=== PATIENT | female | born 1950 | race Caucasian/White ===

== ENCOUNTER 2022-10-17 19:28 | Inpatient (IN) | payer OTHER ==
[~2022-10-17] VITALS: Ht 165.1 cm; Wt 131.5 kg
[2022-10-17 19:33] VITALS: BP_SYST 211; PULSE 91; RESP 25; TEMP 96.9; O2SAT 100
[2022-10-17] MEDS ORDERED: ONDANSETRON HCL 4 MG/2 ML VIAL IVP ONE ×2 (19:45→21:15)
[2022-10-17] MEDS ORDERED: MORPHINE 4 MG INJ. 4 MG/ML VIAL IVP ONE ×2 (19:45→21:15)
[2022-10-17 20:29] LABS: BASOPHILS % (AUTO) 0.3 % (0.0-2.0); EOSINOPHILS % (AUTO) 0.1 % (0.0-4.0); HEMATOCRIT 39.9 % (36-48); HEMOGLOBIN 13.2 g/dL (12.0-16.0); LYMPHOCYTES # (AUTO) 0.9 K/uL (1.0-5.5); LYMPHOCYTES % (AUTO) 5.3 % (20.5-51.5); MEAN CORPUSCULAR HEMOGLOBIN 28 pg (27-31); MEAN CORPUSCULAR HGB CONC 33 % (32-36); MEAN CORPUSCULAR VOLUME 85 fL (79.0-98.0); MONOCYTES # (AUTO) 0.6 K/uL (0.0-1.0); MONOCYTES % (AUTO) 3.9 % (1.7-9.3); NEUTROPHILS # (AUTO) 14.6 K/uL (1.8-7.7); NEUTROPHILS % (AUTO) 90.4 % (40.0-70.0); PLATELET COUNT (AUTO) 386 K/uL (130-430); RED BLOOD CELL COUNT(AUTO) 4.72 MIL/uL (4.2-6.2); RED CELL DISTRIBUTION WIDTH 14.6 % (9.0-15.0); WHITE BLOOD COUNT (AUTO) 16.1 K/uL (4.8-10.8)
[2022-10-17 20:57] LABS: ANION GAP 13 (5-15); CALCIUM 10.7 mg/dL (8.4-11.0); CHLORIDE 96 mmol/L (98-107); CREATININE 0.76 mg/dL (0.55-1.30); GLUCOSE 161 mg/dL (70-99); UREA NITROGEN, BLOOD 18 mg/dL (8-21)
[2022-10-17 21:01] LABS: ALANINE AMINOTRANSFERASE 554 U/L (12-78); ALBUMIN 4.4 g/dL (3.4-4.8); ASPARTATE AMINOTRANSFERASE 594 U/L (10-37)
[2022-10-17 21:04] LABS: LIPASE 4829 U/L (73-393)
[2022-10-17] MEDS ORDERED: PIPERACILLIN/TAZOBACTAM 3.375 GM/VIAL (ZOSYN) IV ONE (21:15)
[2022-10-17] MEDS ORDERED: PIPERACILLIN/TAZO 3.375 GM in NS 50 ML IV ONE (21:15)
[2022-10-17] MEDS ORDERED: NACL 0.9% 1,000 ML IV ONE (21:15)
[2022-10-17] MEDS ORDERED: D5/0.45 NS 1,000 ML IV ONE (22:45)
[2022-10-18] VITALS (12 sets, daily range): BP systolic 125–166; PULSE 83–102; RESP 20–21; TEMP 97.5–98.9; O2SAT 93–99
[2022-10-18] MEDS ORDERED: KETOROLAC TROMETHAMINE 30 MG VIAL IVP PRN (03:30)
[2022-10-18] MEDS ORDERED: NALOXONE HCL 0.4 MG/ML AMP (NARCAN) IVP PRN (06:00)
[2022-10-18] MEDS: D5/0.45 NS 1,000 ML IV SCH ×3 (06:24→21:36)
[2022-10-18 13:15] LABS: BASOPHILS % (AUTO) 0.3 % (0.0-2.0); EOSINOPHILS % (AUTO) 0.2 % (0.0-4.0); HEMOGLOBIN 14.8 g/dL (12.0-16.0); LYMPHOCYTES # (AUTO) 1.1 K/uL (1.0-5.5); LYMPHOCYTES % (AUTO) 8.5 % (20.5-51.5); MEAN CORPUSCULAR HEMOGLOBIN 28 pg (27-31); MEAN CORPUSCULAR HGB CONC 33 % (32-36); MEAN CORPUSCULAR VOLUME 85 fL (79.0-98.0); MONOCYTES # (AUTO) 0.6 K/uL (0.0-1.0); MONOCYTES % (AUTO) 4.4 % (1.7-9.3); NEUTROPHILS # (AUTO) 11.6 K/uL (1.8-7.7); NEUTROPHILS % (AUTO) 86.6 % (40.0-70.0); PLATELET COUNT (AUTO) 389 K/uL (130-430); RED BLOOD CELL COUNT(AUTO) 5.27 MIL/uL (4.2-6.2); RED CELL DISTRIBUTION WIDTH 14.6 % (9.0-15.0); WHITE BLOOD COUNT (AUTO) 13.4 K/uL (4.8-10.8)
[2022-10-18 13:41] LABS: ALANINE AMINOTRANSFERASE 757 U/L (12-78); ALBUMIN 3.7 g/dL (3.4-4.8); ANION GAP 7 (5-15); ASPARTATE AMINOTRANSFERASE 436 U/L (10-37); CALCIUM 9.3 mg/dL (8.4-11.0); CHLORIDE 99 mmol/L (98-107); CREATININE 2.27 mg/dL (0.55-1.30); GLUCOSE 134 mg/dL (70-99); PHOSPHORUS 5.1 mg/dL (2.7-4.5); TOTAL BILIRUBIN 4.1 mg/dL (0.0-1.0); UREA NITROGEN, BLOOD 29 mg/dL (8-21)
[2022-10-18 13:43] LABS: AMYLASE 876 U/L (0-100)
[2022-10-18 13:44] LABS: LIPASE 3909 U/L (73-393)
[2022-10-18] MEDS: MORPHINE 2 MG/ML INJ. SYRINGE IVP PRN ×2 (13:44→22:03)
[2022-10-18] MEDS: PIPERACILLIN/TAZO 4.5GM/DEX-IS 100 ML IV SCH ×2 (13:44→21:36)
[2022-10-18] MEDS ORDERED: FLUTICASONE 250 mCg/SALMETEROL 50 mCg DISKUS W.DEV INH SCH (21:00)
[2022-10-18] MEDS: IPRATROPIUM/ALBUTEROL SULFATE 3 ML AMPUL.NEB (DUONEB) INH PRN (22:30)
[2022-10-19] VITALS (11 sets, daily range): BP systolic 113–130; PULSE 86–120; RESP 16–22; TEMP 96.5–98.8; O2SAT 97–99
[2022-10-19] MEDS: ALBUTEROL SULFATE 0.083% 2.5 MG/3 ML VIAL.NEB INH SCH ×4 (01:00→20:27)
[2022-10-19] MEDS: MORPHINE 2 MG/ML INJ. SYRINGE IVP PRN ×3 (03:20→20:28)
[2022-10-19 05:29] LABS: BASOPHILS % (AUTO) 0.2 % (0.0-2.0); EOSINOPHILS % (AUTO) 0.2 % (0.0-4.0); HEMATOCRIT 46.1 % (36-48); HEMOGLOBIN 15.1 g/dL (12.0-16.0); LYMPHOCYTES # (AUTO) 1.5 K/uL (1.0-5.5); LYMPHOCYTES % (AUTO) 7.7 % (20.5-51.5); MEAN CORPUSCULAR HEMOGLOBIN 28 pg (27-31); MEAN CORPUSCULAR HGB CONC 33 % (32-36); MEAN CORPUSCULAR VOLUME 86 fL (79.0-98.0); MONOCYTES # (AUTO) 0.7 K/uL (0.0-1.0); MONOCYTES % (AUTO) 3.6 % (1.7-9.3); NEUTROPHILS # (AUTO) 17.1 K/uL (1.8-7.7); NEUTROPHILS % (AUTO) 88.3 % (40.0-70.0); PLATELET COUNT (AUTO) 403 K/uL (130-430); RED BLOOD CELL COUNT(AUTO) 5.37 MIL/uL (4.2-6.2); RED CELL DISTRIBUTION WIDTH 14.9 % (9.0-15.0); WHITE BLOOD COUNT (AUTO) 19.4 K/uL (4.8-10.8)
[2022-10-19] MEDS: PIPERACILLIN/TAZO 4.5GM/DEX-IS 100 ML IV SCH ×3 (05:31→21:07)
[2022-10-19 05:34] LABS: ANION GAP 13 (5-15); CALCIUM 8.2 mg/dL (8.4-11.0); CHLORIDE 95 mmol/L (98-107); GLUCOSE 130 mg/dL (70-99); UREA NITROGEN, BLOOD 40 mg/dL (8-21)
[2022-10-19] MEDS: BUDESONIDE 0.5 MG/2 ML AMPUL.NEB INH SCH ×2 (07:35→20:27)
[2022-10-19] MEDS: IPRATROPIUM BROM 0.5 MG/2.5 ML VIAL.NEB (ATROVENT) INH SCH ×3 (07:35→20:26)
[2022-10-19 07:51] LABS: ALBUMIN 3.3 g/dL (3.4-4.8); BILIRUBIN,DIRECT 5.7 mg/dL (0.0-0.3)
[2022-10-19] MEDS ORDERED: TIOTROPIUM BROMIDE 18 mcg/INHALATION (CAPSULE) INH SCH (09:00)
[2022-10-19] MEDS: D5/0.45 NS 1,000 ML IV SCH ×3 (09:13→20:31)
[2022-10-19] MEDS: ONDANSETRON HCL 4 MG/2 ML VIAL IVP PRN (09:24)
[2022-10-19 20:47] LABS: BILIRUBIN,URINE 3+ (NEGATIVE); BLOOD, URINE 2+ (NEGATIVE); CLARITY/URINE SL CLOUDY (CLEAR); COLOR,URINE ORANGE (YELLOW); GLUCOSE,URINE NEGATIVE (NEGATIVE); KETONES,URINE TRACE (NEGATIVE); LEUKOCYTE ESTERASE ,URINE TRACE (NEGATIVE); NITRITE, URINE NEGATIVE (NEGATIVE); PH,URINE 5.5 (5.0-8.0); PROTEIN URINE 2+ (NEGATIVE)
[2022-10-19 20:56] LABS: BACTERIA,URINE FEW /HPF (None Seen)
[2022-10-19 20:58] LABS: COARSE GRANULAR CASTS,URINE 0-10 /LPF (None Seen)
[2022-10-20] VITALS (10 sets, daily range): BP systolic 140–151; PULSE 86–113; RESP 18–20; TEMP 97.2–97.8; O2SAT 3–99
[2022-10-20] MEDS: ALBUTEROL SULFATE 0.083% 2.5 MG/3 ML VIAL.NEB INH SCH ×4 (01:00→19:57)
[2022-10-20] MEDS: IPRATROPIUM/ALBUTEROL SULFATE 3 ML AMPUL.NEB (DUONEB) INH PRN (04:37)
[2022-10-20] MEDS: D5/0.45 NS 1,000 ML IV SCH ×2 (04:47→11:16)
[2022-10-20] MEDS: MORPHINE 2 MG/ML INJ. SYRINGE IVP PRN ×3 (04:48→20:40)
[2022-10-20 05:29] LABS: BASOPHILS % (AUTO) 0.2 % (0.0-2.0); EOSINOPHILS # (AUTO) 0.1 K/uL (0.0-0.4); EOSINOPHILS % (AUTO) 0.7 % (0.0-4.0); HEMATOCRIT 36.2 % (36-48); HEMOGLOBIN 11.9 g/dL (12.0-16.0); LYMPHOCYTES # (AUTO) 0.8 K/uL (1.0-5.5); LYMPHOCYTES % (AUTO) 4.9 % (20.5-51.5); MEAN CORPUSCULAR HEMOGLOBIN 28 pg (27-31); MEAN CORPUSCULAR HGB CONC 33 % (32-36); MEAN CORPUSCULAR VOLUME 85 fL (79.0-98.0); MONOCYTES # (AUTO) 0.7 K/uL (0.0-1.0); NEUTROPHILS # (AUTO) 15.4 K/uL (1.8-7.7); NEUTROPHILS % (AUTO) 90.2 % (40.0-70.0); PLATELET COUNT (AUTO) 276 K/uL (130-430); RED BLOOD CELL COUNT(AUTO) 4.29 MIL/uL (4.2-6.2); WHITE BLOOD COUNT (AUTO) 17.1 K/uL (4.8-10.8)
[2022-10-20 05:56] LABS: ALANINE AMINOTRANSFERASE 346 U/L (12-78); ALBUMIN 2.3 g/dL (3.4-4.8); ANION GAP 15 (5-15); ASPARTATE AMINOTRANSFERASE 208 U/L (10-37); CHLORIDE 91 mmol/L (98-107); CREATININE 5.18 mg/dL (0.55-1.30); GLUCOSE 128 mg/dL (70-99); LIPASE 2421 U/L (73-393); UREA NITROGEN, BLOOD 56 mg/dL (8-21)
[2022-10-20 05:59] LABS: CALCIUM 6.1 mg/dL (8.4-11.0)
[2022-10-20] MEDS: PIPERACILLIN/TAZO 4.5GM/DEX-IS 100 ML IV SCH ×3 (06:00→22:07)
[2022-10-20] MEDS ORDERED: CALCIUM GLUCONATE 2 GM in NS 100 ML IV ONE (06:45)
[2022-10-20] MEDS ORDERED: NS 500 ML IV ONE (07:15)
[2022-10-20] MEDS: BUDESONIDE 0.5 MG/2 ML AMPUL.NEB INH SCH ×2 (07:32→19:58)
[2022-10-20] MEDS: IPRATROPIUM BROM 0.5 MG/2.5 ML VIAL.NEB (ATROVENT) INH SCH ×4 (07:32→19:58)
[2022-10-20] MEDS ORDERED: FUROSEMIDE 40 MG/4 ML VIAL IVP ONE (11:45)
[2022-10-20] MEDS: ACETAMINOPHEN 500 MG TABLET PO PRN ×2 (12:07→20:40)
[2022-10-20 15:27] LABS: BASOPHILS % (AUTO) 0.2 % (0.0-2.0); EOSINOPHILS % (AUTO) 0.2 % (0.0-4.0); HEMATOCRIT 32.8 % (36-48); HEMOGLOBIN 10.8 g/dL (12.0-16.0); LYMPHOCYTES # (AUTO) 0.6 K/uL (1.0-5.5); LYMPHOCYTES % (AUTO) 3.2 % (20.5-51.5); MEAN CORPUSCULAR HEMOGLOBIN 28 pg (27-31); MEAN CORPUSCULAR HGB CONC 33 % (32-36); MEAN CORPUSCULAR VOLUME 85 fL (79.0-98.0); MONOCYTES # (AUTO) 0.8 K/uL (0.0-1.0); MONOCYTES % (AUTO) 4.8 % (1.7-9.3); NEUTROPHILS # (AUTO) 16.2 K/uL (1.8-7.7); PLATELET COUNT (AUTO) 246 K/uL (130-430); RED BLOOD CELL COUNT(AUTO) 3.88 MIL/uL (4.2-6.2); RED CELL DISTRIBUTION WIDTH 14.8 % (9.0-15.0); WHITE BLOOD COUNT (AUTO) 17.7 K/uL (4.8-10.8)
[2022-10-20 16:16] LABS: NEUTROPHILS % (AUTO) 91.6 % (40.0-70.0)
[2022-10-20] MEDS ORDERED: BUMEX 1 MG/4 ML VIAL IVP ONE (19:30)
[2022-10-20] MEDS ORDERED: PANTOPRAZOLE SODIUM 40 MG/VIAL (PROTONIX) IVP ONE (19:30)
[2022-10-20] MEDS: ALBUMIN HUMAN 25% 100 ML IV SCH (20:32)
[2022-10-20] MEDS: D5 IV SCH (20:58)
[2022-10-20] MEDS: [UNRECOGNIZED DRUG - OTHER] IV SCH (20:58)
[2022-10-20] MEDS: SODIUM BICARBONATE IV SCH (20:58)
[2022-10-21] VITALS (15 sets, daily range): BP systolic 134–151; PULSE 94–111; RESP 17–30; TEMP 96.8–98.4; O2SAT 3–100
[2022-10-21] MEDS: ALBUTEROL SULFATE 0.083% 2.5 MG/3 ML VIAL.NEB INH SCH ×4 (01:00→19:56)
[2022-10-21] MEDS: ALBUMIN HUMAN 25% 100 ML IV SCH ×2 (02:56→09:01)
[2022-10-21] MEDS: MORPHINE 2 MG/ML INJ. SYRINGE IVP PRN ×4 (03:06→23:16)
[2022-10-21] MEDS: ACETAMINOPHEN 500 MG TABLET PO PRN ×2 (03:07→17:37)
[2022-10-21] MEDS: PIPERACILLIN/TAZO 4.5GM/DEX-IS 100 ML IV SCH ×3 (05:56→21:18)
[2022-10-21 06:06] LABS: EOSINOPHILS # (AUTO) 0.1 K/uL (0.0-0.4); EOSINOPHILS % (AUTO) 0.3 % (0.0-4.0); HEMATOCRIT 27.9 % (36-48); HEMOGLOBIN 9.4 g/dL (12.0-16.0); LYMPHOCYTES # (AUTO) 0.5 K/uL (1.0-5.5); LYMPHOCYTES % (AUTO) 3.2 % (20.5-51.5); MEAN CORPUSCULAR HEMOGLOBIN 28 pg (27-31); MEAN CORPUSCULAR HGB CONC 34 % (32-36); MEAN CORPUSCULAR VOLUME 84 fL (79.0-98.0); MONOCYTES # (AUTO) 0.9 K/uL (0.0-1.0); MONOCYTES % (AUTO) 5.8 % (1.7-9.3); NEUTROPHILS # (AUTO) 14.4 K/uL (1.8-7.7); NEUTROPHILS % (AUTO) 90.7 % (40.0-70.0); PLATELET COUNT (AUTO) 232 K/uL (130-430); RED BLOOD CELL COUNT(AUTO) 3.32 MIL/uL (4.2-6.2); RED CELL DISTRIBUTION WIDTH 15.3 % (9.0-15.0); WHITE BLOOD COUNT (AUTO) 15.9 K/uL (4.8-10.8)
[2022-10-21 06:28] LABS: ANION GAP 22 (5-15); CREATININE 6.86 mg/dL (0.55-1.30); GLUCOSE 102 mg/dL (70-99); UREA NITROGEN, BLOOD 69 mg/dL (8-21)
[2022-10-21 06:30] LABS: CHLORIDE 84 mmol/L (98-107)
[2022-10-21 06:35] LABS: CALCIUM 6.4 mg/dL (8.4-11.0)
[2022-10-21] MEDS: BUDESONIDE 0.5 MG/2 ML AMPUL.NEB INH SCH ×2 (07:19→20:00)
[2022-10-21] MEDS: IPRATROPIUM BROM 0.5 MG/2.5 ML VIAL.NEB (ATROVENT) INH SCH ×4 (07:19→19:56)
[2022-10-21] MEDS: PANTOPRAZOLE SODIUM 40 MG/VIAL (PROTONIX) IVP SCH (09:00)
[2022-10-21 09:41] LABS: ALBUMIN 2.8 g/dL (3.4-4.8); BILIRUBIN,DIRECT 2.5 mg/dL (0.0-0.3); TOTAL BILIRUBIN 3.3 mg/dL (0.0-1.0)
[2022-10-21] MEDS ORDERED: CALCIUM GLUCONATE 2 GM in NS 100 ML IV ONE (10:30)
[2022-10-21] MEDS ORDERED: SODIUM ACETATE IV SCH (11:15)
[2022-10-21] MEDS ORDERED: D5 IV SCH (11:15)
[2022-10-21] MEDS ORDERED: [UNRECOGNIZED DRUG - OTHER] IV SCH (11:15)
[2022-10-21] MEDS: SODIUM BICARBONATE IV SCH (14:36)
[2022-10-21] MEDS: [UNRECOGNIZED DRUG - OTHER] IV SCH (14:36)
[2022-10-21] MEDS: D5 IV SCH (14:36)
[2022-10-21] MEDS ORDERED: HEPARIN SODIUM,PORCINE 5,000 UNITS/ML VIAL MC ONE (16:00)
[2022-10-22] VITALS (15 sets, daily range): BP systolic 132–185; PULSE 72–118; RESP 17–24; TEMP 97.1–98.5; O2SAT 91–100
[2022-10-22] MEDS: ALBUTEROL SULFATE 0.083% 2.5 MG/3 ML VIAL.NEB INH SCH ×4 (00:41→19:43)
[2022-10-22] MEDS: [UNRECOGNIZED DRUG - OTHER] IV SCH (00:46)
[2022-10-22] MEDS: D5 IV SCH (00:46)
[2022-10-22] MEDS: SODIUM BICARBONATE IV SCH (00:46)
[2022-10-22] MEDS: PIPERACILLIN/TAZO 4.5GM/DEX-IS 100 ML IV SCH ×3 (05:26→22:17)
[2022-10-22 07:16] LABS: BASOPHILS % (AUTO) 0.2 % (0.0-2.0); EOSINOPHILS # (AUTO) 0.1 K/uL (0.0-0.4); EOSINOPHILS % (AUTO) 0.7 % (0.0-4.0); HEMATOCRIT 27.1 % (36-48); HEMOGLOBIN 9.1 g/dL (12.0-16.0); LYMPHOCYTES # (AUTO) 0.4 K/uL (1.0-5.5); LYMPHOCYTES % (AUTO) 2.5 % (20.5-51.5); MEAN CORPUSCULAR HEMOGLOBIN 28 pg (27-31); MEAN CORPUSCULAR HGB CONC 34 % (32-36); MEAN CORPUSCULAR VOLUME 83 fL (79.0-98.0); MONOCYTES # (AUTO) 1.1 K/uL (0.0-1.0); MONOCYTES % (AUTO) 6.1 % (1.7-9.3); NEUTROPHILS # (AUTO) 15.8 K/uL (1.8-7.7); NEUTROPHILS % (AUTO) 90.5 % (40.0-70.0); PLATELET COUNT (AUTO) 246 K/uL (130-430); RED BLOOD CELL COUNT(AUTO) 3.26 MIL/uL (4.2-6.2); RED CELL DISTRIBUTION WIDTH 15.5 % (9.0-15.0); WHITE BLOOD COUNT (AUTO) 17.5 K/uL (4.8-10.8)
[2022-10-22] MEDS: MORPHINE 2 MG/ML INJ. SYRINGE IVP PRN ×2 (07:29→18:38)
[2022-10-22 07:52] LABS: ALANINE AMINOTRANSFERASE 114 U/L (12-78); ALBUMIN 2.4 g/dL (3.4-4.8); ANION GAP 17 (5-15); ASPARTATE AMINOTRANSFERASE 40 U/L (10-37); CALCIUM 7.5 mg/dL (8.4-11.0); CHLORIDE 89 mmol/L (98-107); CREATININE 6.59 mg/dL (0.55-1.30); GLUCOSE 94 mg/dL (70-99); LIPASE 162 U/L (73-393); TOTAL BILIRUBIN 2.6 mg/dL (0.0-1.0); UREA NITROGEN, BLOOD 59 mg/dL (8-21)
[2022-10-22] MEDS: PANTOPRAZOLE SODIUM 40 MG/VIAL (PROTONIX) IVP SCH (08:00)
[2022-10-22] MEDS: IPRATROPIUM BROM 0.5 MG/2.5 ML VIAL.NEB (ATROVENT) INH SCH ×3 (08:21→19:43)
[2022-10-22] MEDS: BUDESONIDE 0.5 MG/2 ML AMPUL.NEB INH SCH ×2 (08:21→19:54)
[2022-10-22 11:30] LABS: PROTHROMBIN TIME 10.1 SECS (9.5-12.5)
[2022-10-22] MEDS: LORazepam 2 MG/ML VIAL IVP PRN (22:18)
[2022-10-22] MEDS ORDERED: DEXTROSE 50% JECT 50 ML DISP.SYRIN ONE (23:23)
[2022-10-23] VITALS (38 sets, daily range): BP systolic 98–189; PULSE 92–112; RESP 14–28; TEMP 97.2–98.2; O2SAT 89–100
[2022-10-23] MEDS ORDERED: DEXTROSE 50% JECT 50 ML DISP.SYRIN IVP ONE
[2022-10-23] MEDS ORDERED: HEPARIN SODIUM, PORCINE 10,000 UNITS/ 10 ML VIAL MC ONE (00:15)
[2022-10-23] MEDS ORDERED: HEPARIN SODIUM,PORCINE 5,000 UNITS/ML VIAL ONE (00:25)
[2022-10-23] MEDS: IPRATROPIUM BROM 0.5 MG/2.5 ML VIAL.NEB (ATROVENT) INH SCH ×4 (00:42→20:08)
[2022-10-23] MEDS: ALBUTEROL SULFATE 0.083% 2.5 MG/3 ML VIAL.NEB INH SCH ×4 (00:42→20:08)
[2022-10-23] MEDS: DEXTROSE 10%-WATER 500 ML IV SCH ×2 (03:09→19:40)
[2022-10-23] MEDS: PIPERACILLIN/TAZO 4.5GM/DEX-IS 100 ML IV SCH ×3 (04:42→21:49)
[2022-10-23] MEDS: MORPHINE 2 MG/ML INJ. SYRINGE IVP PRN ×2 (04:42→14:02)
[2022-10-23 05:27] LABS: BASOPHILS # (AUTO) 0.1 K/uL (0.0-0.2); BASOPHILS % (AUTO) 0.4 % (0.0-2.0); EOSINOPHILS # (AUTO) 0.2 K/uL (0.0-0.4); EOSINOPHILS % (AUTO) 1.1 % (0.0-4.0); HEMATOCRIT 30.6 % (36-48); HEMOGLOBIN 10.2 g/dL (12.0-16.0); LYMPHOCYTES # (AUTO) 0.5 K/uL (1.0-5.5); LYMPHOCYTES % (AUTO) 2.4 % (20.5-51.5); MEAN CORPUSCULAR HEMOGLOBIN 28 pg (27-31); MEAN CORPUSCULAR HGB CONC 34 % (32-36); MEAN CORPUSCULAR VOLUME 84 fL (79.0-98.0); MONOCYTES # (AUTO) 1.4 K/uL (0.0-1.0); MONOCYTES % (AUTO) 7.5 % (1.7-9.3); NEUTROPHILS # (AUTO) 16.9 K/uL (1.8-7.7); NEUTROPHILS % (AUTO) 88.6 % (40.0-70.0); PLATELET COUNT (AUTO) 267 K/uL (130-430); RED BLOOD CELL COUNT(AUTO) 3.66 MIL/uL (4.2-6.2); RED CELL DISTRIBUTION WIDTH 15.4 % (9.0-15.0); WHITE BLOOD COUNT (AUTO) 19.1 K/uL (4.8-10.8)
[2022-10-23 05:42] LABS: ANION GAP 14 (5-15); CHLORIDE 92 mmol/L (98-107); CREATININE 5.45 mg/dL (0.55-1.30); GLUCOSE 107 mg/dL (70-99); UREA NITROGEN, BLOOD 47 mg/dL (8-21)
[2022-10-23] MEDS: LORazepam 2 MG/ML VIAL IVP PRN (07:07)
[2022-10-23] MEDS: BUDESONIDE 0.5 MG/2 ML AMPUL.NEB INH SCH ×2 (07:33→20:08)
[2022-10-23] MEDS ORDERED: MIDAZOLAM HCL 5 MG/5 ML VIAL ONE (09:20)
[2022-10-23] MEDS ORDERED: WATER FOR IRRIGATION,STERILE 1,000 ML IRRIG.SOLN IR ONE (09:20)
[2022-10-23] MEDS ORDERED: LR 1,000 ML IV.SOLN IV ONE (09:20)
[2022-10-23] MEDS ORDERED: ROCURONIUM BROMIDE 10 MG/ML (ZEMURON) ONE (09:20)
[2022-10-23] MEDS ORDERED: SEVOFLURANE 15 MIN GAS INH ONE (09:20)
[2022-10-23] MEDS ORDERED: ePHEDrine sulfate 50 MG/ML VIAL ONE (09:20)
[2022-10-23] MEDS ORDERED: NS 1000 ML IV.SOLN IV ONE (09:20)
[2022-10-23] MEDS ORDERED: NS IRRIG SOLN 1000 ML IR ONE (09:20)
[2022-10-23] MEDS ORDERED: BUPIVACAINE /PF 0.25% 30 ML VIAL INJ ONE (09:20)
[2022-10-23] MEDS ORDERED: fentaNYL CITRATE/PF 100 MCG/2 ML AMP ONE (09:20)
[2022-10-23] MEDS ORDERED: PROPOFOL 200MG/ 20ML VIAL (DIPRIVAN) IV ONE (09:20)
[2022-10-23] MEDS ORDERED: METOCLOPRAMIDE HCL 10 MG/2 ML VIAL IVP PRN (10:15)
[2022-10-23] MEDS ORDERED: fentaNYL CITRATE/PF 100 MCG/2 ML AMP IVP PRN ×2 (10:15)
[2022-10-23] MEDS ORDERED: ONDANSETRON HCL 4 MG/2 ML VIAL IVP PRN (10:15)
[2022-10-23] MEDS ORDERED: iohexoL 240 mgI/mL, 50 ML INFUS..BTL IV ONE (10:16)
[2022-10-23] MEDS ORDERED: *PPN PER PHARMACY XX PRN (12:30)
[2022-10-23] MEDS ORDERED: DEXTROSE 50% JECT 50 ML DISP.SYRIN IVP PRN (12:30)
[2022-10-23] MEDS: PANTOPRAZOLE SODIUM 40 MG/VIAL (PROTONIX) IVP SCH (14:02)
[2022-10-23] MEDS: PROPOFOL DRIP 100 ML IV PRN (16:19)
[2022-10-24] VITALS (37 sets, daily range): BP systolic 91–152; PULSE 78–104; RESP 14–21; TEMP 96.9–98.9; O2SAT 92–99
[2022-10-24] MEDS: MORPHINE 2 MG/ML INJ. SYRINGE IVP PRN
[2022-10-24] MEDS: ALBUTEROL SULFATE 0.083% 2.5 MG/3 ML VIAL.NEB INH SCH ×4 (01:19→19:59)
[2022-10-24] MEDS: IPRATROPIUM BROM 0.5 MG/2.5 ML VIAL.NEB (ATROVENT) INH SCH ×4 (01:20→19:59)
[2022-10-24] MEDS: PROPOFOL DRIP 100 ML IV PRN ×2 (01:37→08:45)
[2022-10-24] MEDS: PIPERACILLIN/TAZO 4.5GM/DEX-IS 100 ML IV SCH ×3 (05:22→21:51)
[2022-10-24 05:51] LABS: BASOPHILS # (AUTO) 0.1 K/uL (0.0-0.2); BASOPHILS % (AUTO) 0.4 % (0.0-2.0); EOSINOPHILS # (AUTO) 0.5 K/uL (0.0-0.4); EOSINOPHILS % (AUTO) 3.2 % (0.0-4.0); HEMATOCRIT 25.8 % (36-48); HEMOGLOBIN 8.6 g/dL (12.0-16.0); LYMPHOCYTES # (AUTO) 0.9 K/uL (1.0-5.5); LYMPHOCYTES % (AUTO) 5.1 % (20.5-51.5); MEAN CORPUSCULAR HEMOGLOBIN 28 pg (27-31); MEAN CORPUSCULAR HGB CONC 33 % (32-36); MEAN CORPUSCULAR VOLUME 84 fL (79.0-98.0); MONOCYTES # (AUTO) 1.5 K/uL (0.0-1.0); NEUTROPHILS # (AUTO) 13.9 K/uL (1.8-7.7); NEUTROPHILS % (AUTO) 82.3 % (40.0-70.0); PLATELET COUNT (AUTO) 247 K/uL (130-430); RED BLOOD CELL COUNT(AUTO) 3.09 MIL/uL (4.2-6.2); RED CELL DISTRIBUTION WIDTH 15.6 % (9.0-15.0); WHITE BLOOD COUNT (AUTO) 16.9 K/uL (4.8-10.8)
[2022-10-24 06:38] LABS: ALANINE AMINOTRANSFERASE 112 U/L (12-78); ALBUMIN 1.8 g/dL (3.4-4.8); ANION GAP 16 (5-15); ASPARTATE AMINOTRANSFERASE 129 U/L (10-37); CALCIUM 7.6 mg/dL (8.4-11.0); CHLORIDE 92 mmol/L (98-107); CREATININE 7.02 mg/dL (0.55-1.30); GLUCOSE 120 mg/dL (70-99); PHOSPHORUS 7.1 mg/dL (2.7-4.5); TOTAL BILIRUBIN 1.9 mg/dL (0.0-1.0); TRIGLYCERIDES 238 mg/dL (30-150); UREA NITROGEN, BLOOD 70 mg/dL (8-21)
[2022-10-24] MEDS: BUDESONIDE 0.5 MG/2 ML AMPUL.NEB INH SCH ×2 (07:45→20:00)
[2022-10-24] MEDS: PANTOPRAZOLE SODIUM 40 MG/VIAL (PROTONIX) IVP SCH (08:08)
[2022-10-24] MEDS: DEXTROSE 10%-WATER 500 ML IV SCH (12:06)
[2022-10-24] MEDS ORDERED: HEPARIN SODIUM,PORCINE 5,000 UNITS/ML VIAL IVP ONE (18:15)
[2022-10-24] MEDS ORDERED: HEPARIN SODIUM, PORCINE 10,000 UNITS/ 10 ML VIAL MC ONE ×2 (20:30)
[2022-10-24] MEDS ORDERED: HEPARIN SODIUM,PORCINE 5,000 UNITS/ML VIAL MC ONE (20:45)
[2022-10-24] MEDS ORDERED: [UNRECOGNIZED DRUG - OTHER] IV SCH ×6 (21:00)
[2022-10-24] MEDS ORDERED: MVI IV SCH ×6 (21:00)
[2022-10-24] MEDS ORDERED: SODIUM CHLORIDE IV SCH ×6 (21:00)
[2022-10-24] MEDS ORDERED: TPN PERIPHERAL IV SCH ×6 (21:00)
[2022-10-24] MEDS ORDERED: TRACE ELEMENTS IV SCH ×6 (21:00)
[2022-10-25] VITALS (36 sets, daily range): BP systolic 110–160; PULSE 69–93; RESP 14–20; TEMP 97.5–98.9; O2SAT 92–100
[2022-10-25] MEDS: IPRATROPIUM BROM 0.5 MG/2.5 ML VIAL.NEB (ATROVENT) INH SCH ×4 (01:17→19:19)
[2022-10-25] MEDS: ALBUTEROL SULFATE 0.083% 2.5 MG/3 ML VIAL.NEB INH SCH ×4 (01:17→19:19)
[2022-10-25 05:49] LABS: BASOPHILS # (AUTO) 0.1 K/uL (0.0-0.2); BASOPHILS % (AUTO) 0.3 % (0.0-2.0); EOSINOPHILS # (AUTO) 0.4 K/uL (0.0-0.4); HEMATOCRIT 24.5 % (36-48); HEMOGLOBIN 8.2 g/dL (12.0-16.0); LYMPHOCYTES # (AUTO) 1.1 K/uL (1.0-5.5); MEAN CORPUSCULAR HEMOGLOBIN 28 pg (27-31); MEAN CORPUSCULAR HGB CONC 33 % (32-36); MEAN CORPUSCULAR VOLUME 84 fL (79.0-98.0); MONOCYTES # (AUTO) 1.4 K/uL (0.0-1.0); MONOCYTES % (AUTO) 6.3 % (1.7-9.3); NEUTROPHILS # (AUTO) 18.8 K/uL (1.8-7.7); NEUTROPHILS % (AUTO) 86.4 % (40.0-70.0); PLATELET COUNT (AUTO) 240 K/uL (130-430); RED BLOOD CELL COUNT(AUTO) 2.92 MIL/uL (4.2-6.2); RED CELL DISTRIBUTION WIDTH 15.4 % (9.0-15.0); WHITE BLOOD COUNT (AUTO) 21.7 K/uL (4.8-10.8)
[2022-10-25 06:42] LABS: ALANINE AMINOTRANSFERASE 95 U/L (12-78); ALBUMIN 1.6 g/dL (3.4-4.8); ANION GAP 16 (5-15); ASPARTATE AMINOTRANSFERASE 129 U/L (10-37); CALCIUM 7.9 mg/dL (8.4-11.0); CHLORIDE 92 mmol/L (98-107); CREATININE 5.59 mg/dL (0.55-1.30); GLUCOSE 137 mg/dL (70-99); PHOSPHORUS 6.1 mg/dL (2.7-4.5); TOTAL BILIRUBIN 1.8 mg/dL (0.0-1.0); UREA NITROGEN, BLOOD 55 mg/dL (8-21)
[2022-10-25] MEDS: BUDESONIDE 0.5 MG/2 ML AMPUL.NEB INH SCH ×2 (07:15→19:19)
[2022-10-25 09:22] LABS: TOTAL IRON BIND. CAPACITY 109 ug/dL (250-450)
[2022-10-25] MEDS: SOD FERRIC GLUC COMPLEX/SUC 125 MG in NS 100 ML IV SCH (11:01)
[2022-10-25] MEDS: PANTOPRAZOLE SODIUM 40 MG/VIAL (PROTONIX) IVP SCH (11:01)
[2022-10-25] MEDS: MORPHINE 2 MG/ML INJ. SYRINGE IVP PRN ×3 (14:20→22:31)
[2022-10-25] MEDS ORDERED: TRACE ELEMENTS IV SCH ×6 (21:00)
[2022-10-25] MEDS ORDERED: SODIUM CHLORIDE IV SCH ×6 (21:00)
[2022-10-25] MEDS ORDERED: MVI IV SCH ×6 (21:00)
[2022-10-25] MEDS ORDERED: TPN PERIPHERAL IV SCH ×6 (21:00)
[2022-10-25] MEDS ORDERED: [UNRECOGNIZED DRUG - OTHER] IV SCH ×6 (21:00)
[2022-10-26] VITALS (35 sets, daily range): BP systolic 98–145; PULSE 70–104; RESP 14–22; TEMP 98–98.5; O2SAT 91–100
[2022-10-26] MEDS: MORPHINE 2 MG/ML INJ. SYRINGE IVP PRN ×5 (01:20→18:43)
[2022-10-26] MEDS: ALBUTEROL SULFATE 0.083% 2.5 MG/3 ML VIAL.NEB INH SCH ×4 (01:28→19:42)
[2022-10-26] MEDS: IPRATROPIUM BROM 0.5 MG/2.5 ML VIAL.NEB (ATROVENT) INH SCH ×4 (01:28→19:42)
[2022-10-26 05:31] LABS: BASOPHILS # (AUTO) 0.1 K/uL (0.0-0.2); BASOPHILS % (AUTO) 0.3 % (0.0-2.0); EOSINOPHILS # (AUTO) 0.5 K/uL (0.0-0.4); EOSINOPHILS % (AUTO) 2.2 % (0.0-4.0); HEMATOCRIT 24.1 % (36-48); HEMOGLOBIN 8.1 g/dL (12.0-16.0); LYMPHOCYTES # (AUTO) 0.8 K/uL (1.0-5.5); LYMPHOCYTES % (AUTO) 3.5 % (20.5-51.5); MEAN CORPUSCULAR HEMOGLOBIN 28 pg (27-31); MEAN CORPUSCULAR HGB CONC 33 % (32-36); MEAN CORPUSCULAR VOLUME 85 fL (79.0-98.0); MONOCYTES # (AUTO) 1.4 K/uL (0.0-1.0); MONOCYTES % (AUTO) 6.1 % (1.7-9.3); NEUTROPHILS # (AUTO) 20.9 K/uL (1.8-7.7); NEUTROPHILS % (AUTO) 87.9 % (40.0-70.0); PLATELET COUNT (AUTO) 253 K/uL (130-430); RED BLOOD CELL COUNT(AUTO) 2.85 MIL/uL (4.2-6.2); RED CELL DISTRIBUTION WIDTH 15.5 % (9.0-15.0); WHITE BLOOD COUNT (AUTO) 23.8 K/uL (4.8-10.8)
[2022-10-26 06:04] LABS: ALANINE AMINOTRANSFERASE 82 U/L (12-78); ALBUMIN 1.6 g/dL (3.4-4.8); ANION GAP 18 (5-15); ASPARTATE AMINOTRANSFERASE 111 U/L (10-37); CALCIUM 8.2 mg/dL (8.4-11.0); CHLORIDE 89 mmol/L (98-107); CREATININE 7.35 mg/dL (0.55-1.30); GLUCOSE 139 mg/dL (70-99); PHOSPHORUS 8.3 mg/dL (2.7-4.5); TOTAL BILIRUBIN 1.7 mg/dL (0.0-1.0); UREA NITROGEN, BLOOD 80 mg/dL (8-21)
[2022-10-26] MEDS: BUDESONIDE 0.5 MG/2 ML AMPUL.NEB INH SCH ×2 (07:13→19:42)
[2022-10-26] MEDS: PANTOPRAZOLE SODIUM 40 MG/VIAL (PROTONIX) IVP SCH (09:03)
[2022-10-26] MEDS: SOD FERRIC GLUC COMPLEX/SUC 125 MG in NS 100 ML IV SCH (10:03)
[2022-10-26] MEDS: ACETAMINOPHEN WITH CODEINE 12.5 ML UDC NG PRN (11:20)
[2022-10-26] MEDS ORDERED: HEPARIN SODIUM,PORCINE 5,000 UNITS/ML VIAL MC ONE (11:39)
[2022-10-26] MEDS ORDERED: HEPARIN SODIUM,PORCINE 5,000 UNITS/ML VIAL ONE (11:39)
[2022-10-26] MEDS ORDERED: PIPERACILLIN/TAZO 3.375/DEX-IS 50 ML IV SCH (12:00)
[2022-10-26] MEDS: PIPERACILLIN/TAZOBACTAM 2.25 GM/ DEX-IS 50 ML PREMIX IV SCH ×2 (14:41→21:27)
[2022-10-26] MEDS ORDERED: MVI IV SCH ×6 (21:00)
[2022-10-26] MEDS ORDERED: TRACE ELEMENTS IV SCH ×6 (21:00)
[2022-10-26] MEDS ORDERED: [UNRECOGNIZED DRUG - OTHER] IV SCH ×6 (21:00)
[2022-10-26] MEDS ORDERED: SODIUM CHLORIDE IV SCH ×6 (21:00)
[2022-10-26] MEDS ORDERED: TPN PERIPHERAL IV SCH ×6 (21:00)
[2022-10-27] VITALS (33 sets, daily range): BP systolic 128–189; PULSE 74–96; RESP 14–21; TEMP 97.3–97.7; O2SAT 90–100
[2022-10-27] MEDS: IPRATROPIUM BROM 0.5 MG/2.5 ML VIAL.NEB (ATROVENT) INH SCH ×4 (00:13→19:23)
[2022-10-27] MEDS: ALBUTEROL SULFATE 0.083% 2.5 MG/3 ML VIAL.NEB INH SCH ×4 (00:13→19:22)
[2022-10-27] MEDS: MORPHINE 2 MG/ML INJ. SYRINGE IVP PRN ×2 (00:43→04:07)
[2022-10-27] MEDS: ACETAMINOPHEN WITH CODEINE 12.5 ML UDC NG PRN ×5 (01:43→23:51)
[2022-10-27 05:29] LABS: BASOPHILS # (AUTO) 0.1 K/uL (0.0-0.2); BASOPHILS % (AUTO) 0.2 % (0.0-2.0); EOSINOPHILS # (AUTO) 0.4 K/uL (0.0-0.4); EOSINOPHILS % (AUTO) 1.7 % (0.0-4.0); HEMATOCRIT 24.5 % (36-48); HEMOGLOBIN 8.1 g/dL (12.0-16.0); LYMPHOCYTES # (AUTO) 1.1 K/uL (1.0-5.5); LYMPHOCYTES % (AUTO) 4.8 % (20.5-51.5); MEAN CORPUSCULAR HEMOGLOBIN 28 pg (27-31); MEAN CORPUSCULAR HGB CONC 33 % (32-36); MEAN CORPUSCULAR VOLUME 85 fL (79.0-98.0); MONOCYTES # (AUTO) 1.5 K/uL (0.0-1.0); MONOCYTES % (AUTO) 6.2 % (1.7-9.3); NEUTROPHILS # (AUTO) 20.4 K/uL (1.8-7.7); NEUTROPHILS % (AUTO) 87.1 % (40.0-70.0); PLATELET COUNT (AUTO) 280 K/uL (130-430); RED BLOOD CELL COUNT(AUTO) 2.89 MIL/uL (4.2-6.2); RED CELL DISTRIBUTION WIDTH 15.6 % (9.0-15.0); WHITE BLOOD COUNT (AUTO) 23.4 K/uL (4.8-10.8)
[2022-10-27] MEDS: PIPERACILLIN/TAZOBACTAM 2.25 GM/ DEX-IS 50 ML PREMIX IV SCH ×3 (06:00→22:55)
[2022-10-27 06:04] LABS: ALANINE AMINOTRANSFERASE 62 U/L (12-78); ALBUMIN 1.6 g/dL (3.4-4.8); ANION GAP 13 (5-15); ASPARTATE AMINOTRANSFERASE 68 U/L (10-37); CALCIUM 8.7 mg/dL (8.4-11.0); CHLORIDE 94 mmol/L (98-107); CREATININE 5.37 mg/dL (0.55-1.30); GLUCOSE 122 mg/dL (70-99); PHOSPHORUS 5.9 mg/dL (2.7-4.5); TOTAL BILIRUBIN 1.8 mg/dL (0.0-1.0); UREA NITROGEN, BLOOD 62 mg/dL (8-21)
[2022-10-27] MEDS: BUDESONIDE 0.5 MG/2 ML AMPUL.NEB INH SCH ×2 (07:20→19:23)
[2022-10-27] MEDS ORDERED: FUROSEMIDE 40 MG/4 ML VIAL IVP ONE (08:00)
[2022-10-27] MEDS: LORazepam 2 MG/ML VIAL IVP PRN (08:27)
[2022-10-27] MEDS: PANTOPRAZOLE SODIUM 40 MG/VIAL (PROTONIX) IVP SCH (08:27)
[2022-10-27] MEDS: SOD FERRIC GLUC COMPLEX/SUC 125 MG in NS 100 ML IV SCH (12:13)
[2022-10-27] MEDS: ACETAMINOPHEN 500 MG TABLET PO PRN (17:30)
[2022-10-27] MEDS ORDERED: SODIUM CHLORIDE IV SCH ×7 (21:00)
[2022-10-27] MEDS ORDERED: [UNRECOGNIZED DRUG - OTHER] IV SCH ×7 (21:00)
[2022-10-27] MEDS ORDERED: POTASSIUM CHLORIDE IV SCH ×7 (21:00)
[2022-10-27] MEDS ORDERED: TPN PERIPHERAL IV SCH ×7 (21:00)
[2022-10-28] VITALS (25 sets, daily range): BP systolic 114–159; PULSE 77–98; RESP 14–24; TEMP 97.4–98.3; O2SAT 91–99
[2022-10-28] MEDS: MORPHINE 2 MG/ML INJ. SYRINGE IVP PRN (01:40)
[2022-10-28] MEDS: IPRATROPIUM BROM 0.5 MG/2.5 ML VIAL.NEB (ATROVENT) INH SCH ×4 (01:52→19:38)
[2022-10-28] MEDS: ALBUTEROL SULFATE 0.083% 2.5 MG/3 ML VIAL.NEB INH SCH ×4 (01:52→19:38)
[2022-10-28 06:29] LABS: BASOPHILS # (AUTO) 0.1 K/uL (0.0-0.2); BASOPHILS % (AUTO) 0.4 % (0.0-2.0); EOSINOPHILS # (AUTO) 0.5 K/uL (0.0-0.4); EOSINOPHILS % (AUTO) 1.8 % (0.0-4.0); HEMATOCRIT 25.4 % (36-48); HEMOGLOBIN 8.2 g/dL (12.0-16.0); LYMPHOCYTES % (AUTO) 3.9 % (20.5-51.5); MEAN CORPUSCULAR HEMOGLOBIN 28 pg (27-31); MEAN CORPUSCULAR HGB CONC 32 % (32-36); MEAN CORPUSCULAR VOLUME 87 fL (79.0-98.0); MONOCYTES # (AUTO) 1.4 K/uL (0.0-1.0); MONOCYTES % (AUTO) 5.4 % (1.7-9.3); NEUTROPHILS # (AUTO) 22.5 K/uL (1.8-7.7); NEUTROPHILS % (AUTO) 88.5 % (40.0-70.0); PLATELET COUNT (AUTO) 346 K/uL (130-430); RED BLOOD CELL COUNT(AUTO) 2.93 MIL/uL (4.2-6.2); RED CELL DISTRIBUTION WIDTH 15.3 % (9.0-15.0); WHITE BLOOD COUNT (AUTO) 25.5 K/uL (4.8-10.8)
[2022-10-28] MEDS: PIPERACILLIN/TAZOBACTAM 2.25 GM/ DEX-IS 50 ML PREMIX IV SCH ×3 (06:53→21:43)
[2022-10-28 07:03] LABS: ALANINE AMINOTRANSFERASE 54 U/L (12-78); ALBUMIN 1.6 g/dL (3.4-4.8); ANION GAP 18 (5-15); ASPARTATE AMINOTRANSFERASE 46 U/L (10-37); CALCIUM 8.3 mg/dL (8.4-11.0); CHLORIDE 91 mmol/L (98-107); CREATININE 6.98 mg/dL (0.55-1.30); GLUCOSE 118 mg/dL (70-99); PHOSPHORUS 7.7 mg/dL (2.7-4.5); TOTAL BILIRUBIN 1.5 mg/dL (0.0-1.0); UREA NITROGEN, BLOOD 87 mg/dL (8-21)
[2022-10-28] MEDS: BUDESONIDE 0.5 MG/2 ML AMPUL.NEB INH SCH ×2 (07:20→19:39)
[2022-10-28] MEDS: PANTOPRAZOLE SODIUM 40 MG/VIAL (PROTONIX) IVP SCH (09:20)
[2022-10-28] MEDS: SOD FERRIC GLUC COMPLEX/SUC 125 MG in NS 100 ML IV SCH (09:21)
[2022-10-28] MEDS ORDERED: HEPARIN SODIUM,PORCINE 5,000 UNITS/ML VIAL MC ONE (10:15)
[2022-10-28] MEDS: IPRATROPIUM/ALBUTEROL SULFATE 3 ML AMPUL.NEB (DUONEB) INH PRN (10:45)
[2022-10-28] MEDS: ONDANSETRON HCL 4 MG/2 ML VIAL IVP PRN (10:51)
[2022-10-28] MEDS ORDERED: TPN PERIPHERAL IV SCH ×14 (11:30→21:00)
[2022-10-28] MEDS ORDERED: [UNRECOGNIZED DRUG - OTHER] IV SCH ×14 (11:30→21:00)
[2022-10-28] MEDS ORDERED: SODIUM CHLORIDE IV SCH ×14 (11:30→21:00)
[2022-10-28] MEDS ORDERED: POTASSIUM CHLORIDE IV SCH ×14 (11:30→21:00)
[2022-10-28] MEDS: ACETAMINOPHEN WITH CODEINE 12.5 ML UDC NG PRN (18:36)
[2022-10-29] VITALS (12 sets, daily range): BP systolic 127–162; PULSE 76–124; RESP 17–21; TEMP 96.8–98; O2SAT 94–98
[2022-10-29] MEDS: ACETAMINOPHEN WITH CODEINE 12.5 ML UDC NG PRN ×2 (00:38→11:59)
[2022-10-29] MEDS: IPRATROPIUM BROM 0.5 MG/2.5 ML VIAL.NEB (ATROVENT) INH SCH ×4 (02:23→19:54)
[2022-10-29] MEDS: ALBUTEROL SULFATE 0.083% 2.5 MG/3 ML VIAL.NEB INH SCH ×4 (02:23→19:53)
[2022-10-29 06:29] LABS: ALANINE AMINOTRANSFERASE 42 U/L (12-78); ALBUMIN 1.5 g/dL (3.4-4.8); ANION GAP 13 (5-15); ASPARTATE AMINOTRANSFERASE 32 U/L (10-37); CALCIUM 7.8 mg/dL (8.4-11.0); CHLORIDE 95 mmol/L (98-107); CREATININE 5.46 mg/dL (0.55-1.30); GLUCOSE 136 mg/dL (70-99); PHOSPHORUS 4.9 mg/dL (2.7-4.5); TOTAL BILIRUBIN 1.2 mg/dL (0.0-1.0); UREA NITROGEN, BLOOD 61 mg/dL (8-21)
[2022-10-29] MEDS: PIPERACILLIN/TAZOBACTAM 2.25 GM/ DEX-IS 50 ML PREMIX IV SCH ×3 (06:35→22:08)
[2022-10-29] MEDS: BUDESONIDE 0.5 MG/2 ML AMPUL.NEB INH SCH ×2 (07:00→19:54)
[2022-10-29] MEDS: SOD FERRIC GLUC COMPLEX/SUC 125 MG in NS 100 ML IV SCH (09:41)
[2022-10-29] MEDS: PANTOPRAZOLE SODIUM 40 MG/VIAL (PROTONIX) IVP SCH (09:51)
[2022-10-29 09:54] LABS: BASOPHILS % (AUTO) 0.1 % (0.0-2.0); EOSINOPHILS # (AUTO) 0.3 K/uL (0.0-0.4); EOSINOPHILS % (AUTO) 1.7 % (0.0-4.0); HEMATOCRIT 23.6 % (36-48); HEMOGLOBIN 7.7 g/dL (12.0-16.0); LYMPHOCYTES % (AUTO) 4.7 % (20.5-51.5); MEAN CORPUSCULAR HEMOGLOBIN 28 pg (27-31); MEAN CORPUSCULAR HGB CONC 33 % (32-36); MEAN CORPUSCULAR VOLUME 87 fL (79.0-98.0); MONOCYTES # (AUTO) 1.1 K/uL (0.0-1.0); MONOCYTES % (AUTO) 5.6 % (1.7-9.3); NEUTROPHILS # (AUTO) 18.1 K/uL (1.8-7.7); NEUTROPHILS % (AUTO) 87.9 % (40.0-70.0); PLATELET COUNT (AUTO) 375 K/uL (130-430); RED BLOOD CELL COUNT(AUTO) 2.72 MIL/uL (4.2-6.2); RED CELL DISTRIBUTION WIDTH 15.5 % (9.0-15.0); WHITE BLOOD COUNT (AUTO) 20.6 K/uL (4.8-10.8)
[2022-10-29] MEDS ORDERED: SODIUM CHLORIDE IV SCH ×8 (21:00)
[2022-10-29] MEDS ORDERED: POTASSIUM CHLORIDE IV SCH ×8 (21:00)
[2022-10-29] MEDS ORDERED: [UNRECOGNIZED DRUG - OTHER] IV SCH ×8 (21:00)
[2022-10-29] MEDS ORDERED: TPN PERIPHERAL IV SCH ×8 (21:00)
[2022-10-30] VITALS (13 sets, daily range): BP systolic 144–152; PULSE 79–84; RESP 16–18; TEMP 97.9–98.3; O2SAT 94–99
[2022-10-30] MEDS: ACETAMINOPHEN 500 MG TABLET PO PRN ×2 (00:20→12:54)
[2022-10-30] MEDS: ALBUTEROL SULFATE 0.083% 2.5 MG/3 ML VIAL.NEB INH SCH ×4 (01:44→19:59)
[2022-10-30] MEDS: IPRATROPIUM BROM 0.5 MG/2.5 ML VIAL.NEB (ATROVENT) INH SCH ×4 (01:45→20:00)
[2022-10-30] MEDS: PIPERACILLIN/TAZOBACTAM 2.25 GM/ DEX-IS 50 ML PREMIX IV SCH ×3 (06:03→22:36)
[2022-10-30 07:24] LABS: ALANINE AMINOTRANSFERASE 36 U/L (12-78); ALBUMIN 1.4 g/dL (3.4-4.8); ANION GAP 13 (5-15); ASPARTATE AMINOTRANSFERASE 28 U/L (10-37); CALCIUM 7.8 mg/dL (8.4-11.0); CHLORIDE 93 mmol/L (98-107); CREATININE 7.27 mg/dL (0.55-1.30); GLUCOSE 123 mg/dL (70-99); PHOSPHORUS 5.9 mg/dL (2.7-4.5); UREA NITROGEN, BLOOD 94 mg/dL (8-21)
[2022-10-30] MEDS: BUDESONIDE 0.5 MG/2 ML AMPUL.NEB INH SCH ×2 (07:33→20:00)
[2022-10-30 07:45] LABS: BASOPHILS # (AUTO) 0.1 K/uL (0.0-0.2); BASOPHILS % (AUTO) 0.5 % (0.0-2.0); EOSINOPHILS # (AUTO) 0.3 K/uL (0.0-0.4); EOSINOPHILS % (AUTO) 1.5 % (0.0-4.0); HEMATOCRIT 23.2 % (36-48); HEMOGLOBIN 7.5 g/dL (12.0-16.0); LYMPHOCYTES % (AUTO) 5.2 % (20.5-51.5); MEAN CORPUSCULAR HEMOGLOBIN 28 pg (27-31); MEAN CORPUSCULAR HGB CONC 32 % (32-36); MEAN CORPUSCULAR VOLUME 86 fL (79.0-98.0); MONOCYTES # (AUTO) 1.2 K/uL (0.0-1.0); MONOCYTES % (AUTO) 6.1 % (1.7-9.3); NEUTROPHILS # (AUTO) 16.7 K/uL (1.8-7.7); NEUTROPHILS % (AUTO) 86.7 % (40.0-70.0); PLATELET COUNT (AUTO) 455 K/uL (130-430); RED BLOOD CELL COUNT(AUTO) 2.68 MIL/uL (4.2-6.2); RED CELL DISTRIBUTION WIDTH 15.4 % (9.0-15.0); WHITE BLOOD COUNT (AUTO) 19.3 K/uL (4.8-10.8)
[2022-10-30] MEDS: PANTOPRAZOLE SODIUM 40 MG/VIAL (PROTONIX) IVP SCH (09:12)
[2022-10-30] MEDS ORDERED: HEPARIN SODIUM,PORCINE 5,000 UNITS/ML VIAL MC ONE ×2 (10:05→10:15)
[2022-10-30] MEDS: ONDANSETRON HCL 4 MG/2 ML VIAL IVP PRN (10:17)
[2022-10-30] MEDS: SOD FERRIC GLUC COMPLEX/SUC 125 MG in NS 100 ML IV SCH (10:27)
[2022-10-30] MEDS ORDERED: TPN PERIPHERAL IV SCH ×8 (21:00)
[2022-10-30] MEDS ORDERED: POTASSIUM CHLORIDE IV SCH ×8 (21:00)
[2022-10-30] MEDS ORDERED: SODIUM CHLORIDE IV SCH ×8 (21:00)
[2022-10-30] MEDS ORDERED: [UNRECOGNIZED DRUG - OTHER] IV SCH ×8 (21:00)
[2022-10-30] MEDS: ACETAMINOPHEN WITH CODEINE 12.5 ML UDC NG PRN (22:39)
[2022-10-30] MEDS: IPRATROPIUM/ALBUTEROL SULFATE 3 ML AMPUL.NEB (DUONEB) INH PRN (22:58)
[2022-10-31] VITALS (12 sets, daily range): BP systolic 145–174; PULSE 72–95; RESP 16–20; TEMP 97.3–98.2; O2SAT 87–100
[2022-10-31] MEDS: IPRATROPIUM BROM 0.5 MG/2.5 ML VIAL.NEB (ATROVENT) INH SCH ×4 (01:00→19:00)
[2022-10-31] MEDS: ALBUTEROL SULFATE 0.083% 2.5 MG/3 ML VIAL.NEB INH SCH ×4 (01:00→19:00)
[2022-10-31] MEDS: IPRATROPIUM/ALBUTEROL SULFATE 3 ML AMPUL.NEB (DUONEB) INH PRN ×2 (04:37→11:53)
[2022-10-31] MEDS: PIPERACILLIN/TAZOBACTAM 2.25 GM/ DEX-IS 50 ML PREMIX IV SCH ×3 (06:06→21:34)
[2022-10-31 07:05] LABS: BASOPHILS # (AUTO) 0.1 K/uL (0.0-0.2); BASOPHILS % (AUTO) 0.3 % (0.0-2.0); EOSINOPHILS # (AUTO) 0.3 K/uL (0.0-0.4); EOSINOPHILS % (AUTO) 1.5 % (0.0-4.0); HEMATOCRIT 24.7 % (36-48); LYMPHOCYTES # (AUTO) 1.1 K/uL (1.0-5.5); LYMPHOCYTES % (AUTO) 6.1 % (20.5-51.5); MEAN CORPUSCULAR HEMOGLOBIN 28 pg (27-31); MEAN CORPUSCULAR HGB CONC 33 % (32-36); MEAN CORPUSCULAR VOLUME 86 fL (79.0-98.0); MONOCYTES # (AUTO) 1.2 K/uL (0.0-1.0); MONOCYTES % (AUTO) 6.5 % (1.7-9.3); NEUTROPHILS # (AUTO) 15.3 K/uL (1.8-7.7); NEUTROPHILS % (AUTO) 85.6 % (40.0-70.0); PLATELET COUNT (AUTO) 483 K/uL (130-430); RED BLOOD CELL COUNT(AUTO) 2.86 MIL/uL (4.2-6.2); RED CELL DISTRIBUTION WIDTH 15.8 % (9.0-15.0); WHITE BLOOD COUNT (AUTO) 17.9 K/uL (4.8-10.8)
[2022-10-31] MEDS: BUDESONIDE 0.5 MG/2 ML AMPUL.NEB INH SCH ×2 (07:16→19:00)
[2022-10-31 07:32] LABS: ALANINE AMINOTRANSFERASE 28 U/L (12-78); ALBUMIN 1.4 g/dL (3.4-4.8); ANION GAP 12 (5-15); ASPARTATE AMINOTRANSFERASE 34 U/L (10-37); CALCIUM 8.2 mg/dL (8.4-11.0); CHLORIDE 94 mmol/L (98-107); CREATININE 5.66 mg/dL (0.55-1.30); GLUCOSE 89 mg/dL (70-99); PHOSPHORUS 5.3 mg/dL (2.7-4.5); TOTAL BILIRUBIN 0.8 mg/dL (0.0-1.0); UREA NITROGEN, BLOOD 63 mg/dL (8-21)
[2022-10-31] MEDS: PANTOPRAZOLE SODIUM 40 MG/VIAL (PROTONIX) IVP SCH (08:51)
[2022-10-31] MEDS: SOD FERRIC GLUC COMPLEX/SUC 125 MG in NS 100 ML IV SCH (12:08)
[2022-10-31] MEDS: ACETAMINOPHEN 500 MG TABLET PO PRN (14:53)
[2022-10-31 19:35] LABS: TRIGLYCERIDES 180 mg/dL (30-150)
[2022-10-31] MEDS ORDERED: [UNRECOGNIZED DRUG - OTHER] IV SCH ×8 (21:00)
[2022-10-31] MEDS ORDERED: SODIUM CHLORIDE IV SCH ×8 (21:00)
[2022-10-31] MEDS ORDERED: TPN PERIPHERAL IV SCH ×8 (21:00)
[2022-10-31] MEDS ORDERED: POTASSIUM CHLORIDE IV SCH ×8 (21:00)
[2022-10-31] MEDS: ACETAMINOPHEN WITH CODEINE 12.5 ML UDC NG PRN (21:33)
[2022-11-01] VITALS (15 sets, daily range): BP systolic 146–219; PULSE 84–101; RESP 18–24; TEMP 96.4–98.4; O2SAT 90–99
[2022-11-01] MEDS: IPRATROPIUM BROM 0.5 MG/2.5 ML VIAL.NEB (ATROVENT) INH SCH ×4 (00:50→20:07)
[2022-11-01] MEDS: ALBUTEROL SULFATE 0.083% 2.5 MG/3 ML VIAL.NEB INH SCH ×4 (00:50→20:06)
[2022-11-01] MEDS: IPRATROPIUM/ALBUTEROL SULFATE 3 ML AMPUL.NEB (DUONEB) INH PRN ×2 (05:18→15:12)
[2022-11-01] MEDS: PIPERACILLIN/TAZOBACTAM 2.25 GM/ DEX-IS 50 ML PREMIX IV SCH ×3 (06:52→21:07)
[2022-11-01 07:08] LABS: ALANINE AMINOTRANSFERASE 28 U/L (12-78); ALBUMIN 1.4 g/dL (3.4-4.8); ANION GAP 14 (5-15); ASPARTATE AMINOTRANSFERASE 32 U/L (10-37); CALCIUM 8.3 mg/dL (8.4-11.0); CHLORIDE 92 mmol/L (98-107); CREATININE 6.92 mg/dL (0.55-1.30); GLUCOSE 109 mg/dL (70-99); PHOSPHORUS 6.4 mg/dL (2.7-4.5); UREA NITROGEN, BLOOD 84 mg/dL (8-21)
[2022-11-01 07:11] LABS: BASOPHILS % (AUTO) 0.3 % (0.0-2.0); EOSINOPHILS # (AUTO) 0.3 K/uL (0.0-0.4); EOSINOPHILS % (AUTO) 1.6 % (0.0-4.0); HEMOGLOBIN 8.8 g/dL (12.0-16.0); LYMPHOCYTES % (AUTO) 5.6 % (20.5-51.5); MEAN CORPUSCULAR HEMOGLOBIN 28 pg (27-31); MEAN CORPUSCULAR HGB CONC 33 % (32-36); MEAN CORPUSCULAR VOLUME 88 fL (79.0-98.0); MONOCYTES # (AUTO) 1.2 K/uL (0.0-1.0); MONOCYTES % (AUTO) 6.3 % (1.7-9.3); NEUTROPHILS # (AUTO) 16.3 K/uL (1.8-7.7); NEUTROPHILS % (AUTO) 86.2 % (40.0-70.0); PLATELET COUNT (AUTO) 539 K/uL (130-430); RED BLOOD CELL COUNT(AUTO) 3.09 MIL/uL (4.2-6.2); RED CELL DISTRIBUTION WIDTH 15.4 % (9.0-15.0); WHITE BLOOD COUNT (AUTO) 18.9 K/uL (4.8-10.8)
[2022-11-01] MEDS: BUDESONIDE 0.5 MG/2 ML AMPUL.NEB INH SCH ×2 (08:12→20:07)
[2022-11-01] MEDS: PANTOPRAZOLE SODIUM 40 MG/VIAL (PROTONIX) IVP SCH (10:09)
[2022-11-01] MEDS: SOD FERRIC GLUC COMPLEX/SUC 125 MG in NS 100 ML IV SCH (10:10)
[2022-11-01] MEDS ORDERED: clonazePAM 0.5 MG TABLET PO PRN (11:30)
[2022-11-01] MEDS ORDERED: METHYLPREDNISOLONE SOD SUCC 40 MG/ML VIAL IVP ONE (12:45)
[2022-11-01 14:56] LABS: ALBUMIN 1.6 g/dL (3.4-4.8); BILIRUBIN,DIRECT 0.7 mg/dL (0.0-0.3); TOTAL BILIRUBIN 0.9 mg/dL (0.0-1.0)
[2022-11-01] MEDS ORDERED: HEPARIN SODIUM,PORCINE 5,000 UNITS/ML VIAL ONE (16:38)
[2022-11-01 17:00] LABS: HEMATOCRIT 26.1 % (36-48); HEMOGLOBIN 8.5 g/dL (12.0-16.0); MEAN CORPUSCULAR HEMOGLOBIN 28 pg (27-31); MEAN CORPUSCULAR HGB CONC 33 % (32-36); PLATELET COUNT (AUTO) 599 K/uL (130-430); RED BLOOD CELL COUNT(AUTO) 3.03 MIL/uL (4.2-6.2); WHITE BLOOD COUNT (AUTO) 25.6 K/uL (4.8-10.8)
[2022-11-01 17:02] LABS: MEAN CORPUSCULAR VOLUME 86 fL (79.0-98.0)
[2022-11-01 17:20] LABS: ALANINE AMINOTRANSFERASE 27 U/L (12-78); ALBUMIN 1.5 g/dL (3.4-4.8); ANION GAP 11 (5-15); ASPARTATE AMINOTRANSFERASE 29 U/L (10-37); CALCIUM 8.1 mg/dL (8.4-11.0); CHLORIDE 93 mmol/L (98-107); CREATININE 6.49 mg/dL (0.55-1.30); GLUCOSE 131 mg/dL (70-99); TOTAL BILIRUBIN 0.9 mg/dL (0.0-1.0); UREA NITROGEN, BLOOD 79 mg/dL (8-21)
[2022-11-01 17:21] LABS: BAND % (MANUAL) 4 % (0-6); BASOPHILS % (MANUAL) 0 % (0-2); EOSINOPHILS % (MANUAL) 2 % (0-7); LYMPHOCYTES % (MANUAL) 4 % (20-46); METAMYELOCYTES % 1 % (0-0); MONOCYTES % (MANUAL) 2 % (0-11)
[2022-11-01] MEDS ORDERED: SODIUM CHLORIDE IV SCH ×6 (21:00)
[2022-11-01] MEDS ORDERED: TPN PERIPHERAL IV SCH ×6 (21:00)
[2022-11-01] MEDS ORDERED: [UNRECOGNIZED DRUG - OTHER] IV SCH ×6 (21:00)
[2022-11-01] MEDS ORDERED: MVI IV SCH ×6 (21:00)
[2022-11-01] MEDS ORDERED: TRACE ELEMENTS IV SCH ×6 (21:00)
[2022-11-01] MEDS: METHYLPREDNISOLONE SOD SUCC 40 MG/ML VIAL IVP SCH (21:06)
[2022-11-02] VITALS (13 sets, daily range): BP systolic 146–166; PULSE 73–91; RESP 16–20; TEMP 96.7–97.7; O2SAT 97–100
[2022-11-02] MEDS: INSULIN REGULAR, HUMAN 100 UNITS/ML, 3 ML VIAL (humuLIN R) SUBCUT PRN (02:11)
[2022-11-02] MEDS: ALBUTEROL SULFATE 0.083% 2.5 MG/3 ML VIAL.NEB INH SCH ×4 (02:21→19:44)
[2022-11-02] MEDS: IPRATROPIUM BROM 0.5 MG/2.5 ML VIAL.NEB (ATROVENT) INH SCH ×4 (02:22→19:44)
[2022-11-02 05:40] LABS: BASOPHILS % (AUTO) 0.2 % (0.0-2.0); HEMOGLOBIN 7.6 g/dL (12.0-16.0); LYMPHOCYTES # (AUTO) 0.3 K/uL (1.0-5.5); LYMPHOCYTES % (AUTO) 2.1 % (20.5-51.5); MEAN CORPUSCULAR HEMOGLOBIN 28 pg (27-31); MEAN CORPUSCULAR HGB CONC 33 % (32-36); MEAN CORPUSCULAR VOLUME 86 fL (79.0-98.0); MONOCYTES # (AUTO) 0.3 K/uL (0.0-1.0); MONOCYTES % (AUTO) 2.1 % (1.7-9.3); NEUTROPHILS # (AUTO) 14.8 K/uL (1.8-7.7); NEUTROPHILS % (AUTO) 95.6 % (40.0-70.0); PLATELET COUNT (AUTO) 480 K/uL (130-430); RED BLOOD CELL COUNT(AUTO) 2.67 MIL/uL (4.2-6.2); RED CELL DISTRIBUTION WIDTH 15.1 % (9.0-15.0); WHITE BLOOD COUNT (AUTO) 15.5 K/uL (4.8-10.8)
[2022-11-02] MEDS: PIPERACILLIN/TAZOBACTAM 2.25 GM/ DEX-IS 50 ML PREMIX IV SCH ×3 (06:24→22:00)
[2022-11-02 06:25] LABS: ALANINE AMINOTRANSFERASE 27 U/L (12-78); ALBUMIN < 0.6 g/dL (3.4-4.8); ANION GAP 15 (5-15); ASPARTATE AMINOTRANSFERASE 24 U/L (10-37); CALCIUM 7.7 mg/dL (8.4-11.0); CHLORIDE 93 mmol/L (98-107); GLUCOSE 171 mg/dL (70-99); TOTAL BILIRUBIN 0.7 mg/dL (0.0-1.0)
[2022-11-02 06:29] LABS: CREATININE 7.84 mg/dL (0.55-1.30); UREA NITROGEN, BLOOD 109 mg/dL (8-21)
[2022-11-02] MEDS: BUDESONIDE 0.5 MG/2 ML AMPUL.NEB INH SCH ×2 (08:03→19:44)
[2022-11-02] MEDS: PANTOPRAZOLE SODIUM 40 MG/VIAL (PROTONIX) IVP SCH (09:52)
[2022-11-02] MEDS: METHYLPREDNISOLONE SOD SUCC 40 MG/ML VIAL IVP SCH ×2 (09:53→22:00)
[2022-11-02] MEDS: DIPHENHYDRAMINE INJ 50 MG/ML VIAL IVP SCH (10:47)
[2022-11-02] MEDS: HEPARIN SODIUM,PORCINE 5,000 UNITS/ML VIAL MC PRN (14:22)
[2022-11-02] MEDS: ACETAMINOPHEN 500 MG TABLET PO PRN (15:48)
[2022-11-02] MEDS: EPOETIN ALFA-EPBX 4,000 UNITS/ML VIAL SUBCUT SCH (18:24)
[2022-11-02] MEDS: SODIUM CHLORIDE IV SCH ×6 (22:03)
[2022-11-02] MEDS: TRACE ELEMENTS IV SCH ×6 (22:03)
[2022-11-02] MEDS: TPN PERIPHERAL IV SCH ×6 (22:03)
[2022-11-02] MEDS: [UNRECOGNIZED DRUG - OTHER] IV SCH ×6 (22:03)
[2022-11-02] MEDS: MVI IV SCH ×6 (22:03)
[2022-11-03] VITALS (14 sets, daily range): BP systolic 157–178; PULSE 76–103; RESP 18–20; TEMP 96.9–97.9; O2SAT 93–99
[2022-11-03] MEDS: ALBUTEROL SULFATE 0.083% 2.5 MG/3 ML VIAL.NEB INH SCH ×4 (00:59→19:49)
[2022-11-03] MEDS: PIPERACILLIN/TAZOBACTAM 2.25 GM/ DEX-IS 50 ML PREMIX IV SCH ×3 (06:09→20:59)
[2022-11-03 06:22] LABS: BASOPHILS % (AUTO) 0.2 % (0.0-2.0); HEMATOCRIT 23.4 % (36-48); HEMOGLOBIN 7.8 g/dL (12.0-16.0); LYMPHOCYTES # (AUTO) 0.4 K/uL (1.0-5.5); LYMPHOCYTES % (AUTO) 2.1 % (20.5-51.5); MEAN CORPUSCULAR HEMOGLOBIN 28 pg (27-31); MEAN CORPUSCULAR HGB CONC 33 % (32-36); MEAN CORPUSCULAR VOLUME 86 fL (79.0-98.0); MONOCYTES # (AUTO) 0.4 K/uL (0.0-1.0); MONOCYTES % (AUTO) 2.5 % (1.7-9.3); NEUTROPHILS # (AUTO) 16.8 K/uL (1.8-7.7); NEUTROPHILS % (AUTO) 95.2 % (40.0-70.0); PLATELET COUNT (AUTO) 517 K/uL (130-430); RED BLOOD CELL COUNT(AUTO) 2.73 MIL/uL (4.2-6.2); RED CELL DISTRIBUTION WIDTH 15.9 % (9.0-15.0); WHITE BLOOD COUNT (AUTO) 17.7 K/uL (4.8-10.8)
[2022-11-03 06:39] LABS: ALANINE AMINOTRANSFERASE 26 U/L (12-78); ALBUMIN 1.6 g/dL (3.4-4.8); ANION GAP 12 (5-15); ASPARTATE AMINOTRANSFERASE 32 U/L (10-37); CALCIUM 7.7 mg/dL (8.4-11.0); CHLORIDE 96 mmol/L (98-107); CREATININE 5.76 mg/dL (0.55-1.30); GLUCOSE 144 mg/dL (70-99); PHOSPHORUS 4.8 mg/dL (2.7-4.5); TOTAL BILIRUBIN 0.6 mg/dL (0.0-1.0); UREA NITROGEN, BLOOD 94 mg/dL (8-21)
[2022-11-03] MEDS: BUDESONIDE 0.5 MG/2 ML AMPUL.NEB INH SCH ×2 (07:18→19:50)
[2022-11-03] MEDS: IPRATROPIUM BROM 0.5 MG/2.5 ML VIAL.NEB (ATROVENT) INH SCH ×3 (07:19→19:49)
[2022-11-03] MEDS: PANTOPRAZOLE SODIUM 40 MG/VIAL (PROTONIX) IVP SCH (08:53)
[2022-11-03] MEDS: ACETAMINOPHEN WITH CODEINE 12.5 ML UDC NG PRN ×2 (08:53→18:36)
[2022-11-03] MEDS: METHYLPREDNISOLONE SOD SUCC 40 MG/ML VIAL IVP SCH ×2 (08:54→20:59)
[2022-11-03] MEDS: cloNIDine HCL 0.2 MG TABLET PO PRN ×2 (08:54→21:00)
[2022-11-03 10:58] LABS: BASOPHILS % (AUTO) 0.2 % (0.0-2.0); HEMATOCRIT 22.9 % (36-48); HEMOGLOBIN 7.5 g/dL (12.0-16.0); LYMPHOCYTES # (AUTO) 0.4 K/uL (1.0-5.5); LYMPHOCYTES % (AUTO) 2.2 % (20.5-51.5); MEAN CORPUSCULAR HEMOGLOBIN 28 pg (27-31); MEAN CORPUSCULAR HGB CONC 33 % (32-36); MEAN CORPUSCULAR VOLUME 87 fL (79.0-98.0); MONOCYTES # (AUTO) 0.9 K/uL (0.0-1.0); NEUTROPHILS # (AUTO) 16.3 K/uL (1.8-7.7); NEUTROPHILS % (AUTO) 92.6 % (40.0-70.0); PLATELET COUNT (AUTO) 505 K/uL (130-430); RED BLOOD CELL COUNT(AUTO) 2.65 MIL/uL (4.2-6.2); RED CELL DISTRIBUTION WIDTH 15.6 % (9.0-15.0); WHITE BLOOD COUNT (AUTO) 17.6 K/uL (4.8-10.8)
[2022-11-03] MEDS ORDERED: LACTULOSE 20 GM/30 ML UDC PO ONE (11:00)
[2022-11-03 11:53] LABS: PROTHROMBIN TIME 10.3 SECS (9.5-12.5)
[2022-11-03] MEDS ORDERED: BENZOCAINE/MENTHOL 1 EACH LOZENGE MM PRN (17:15)
[2022-11-03] MEDS ORDERED: DEXTROMET/BENZOCAIN/MENTHOL SF 1 LOZENGE MM PRN (17:30)
[2022-11-03] MEDS: LACTULOSE 20 GM/30 ML UDC PO SCH (20:59)
[2022-11-03] MEDS: MVI IV SCH ×6 (21:02)
[2022-11-03] MEDS: TRACE ELEMENTS IV SCH ×6 (21:02)
[2022-11-03] MEDS: SODIUM CHLORIDE IV SCH ×6 (21:02)
[2022-11-03] MEDS: TPN PERIPHERAL IV SCH ×6 (21:02)
[2022-11-03] MEDS: [UNRECOGNIZED DRUG - OTHER] IV SCH ×6 (21:02)
[2022-11-04] VITALS (16 sets, daily range): BP systolic 154–192; PULSE 74–105; RESP 16–20; TEMP 96.9–97.8; O2SAT 93–100
[2022-11-04] MEDS: ALBUTEROL SULFATE 0.083% 2.5 MG/3 ML VIAL.NEB INH SCH ×4 (01:16→23:27)
[2022-11-04] MEDS: IPRATROPIUM BROM 0.5 MG/2.5 ML VIAL.NEB (ATROVENT) INH SCH ×4 (01:16→23:27)
[2022-11-04 03:06] LABS: HEPATITIS A AB, IgM Negative (Negative); HEPATITIS B CORE AB, IgM Negative (Negative); HEPATITIS B SURFACE AG Negative (Negative)
[2022-11-04 05:12] LABS: BASOPHILS # (AUTO) 0.1 K/uL (0.0-0.2); BASOPHILS % (AUTO) 0.3 % (0.0-2.0); HEMATOCRIT 24.7 % (36-48); HEMOGLOBIN 8.1 g/dL (12.0-16.0); LYMPHOCYTES # (AUTO) 0.6 K/uL (1.0-5.5); LYMPHOCYTES % (AUTO) 3.1 % (20.5-51.5); MEAN CORPUSCULAR HEMOGLOBIN 29 pg (27-31); MEAN CORPUSCULAR HGB CONC 33 % (32-36); MEAN CORPUSCULAR VOLUME 87 fL (79.0-98.0); MONOCYTES # (AUTO) 0.7 K/uL (0.0-1.0); MONOCYTES % (AUTO) 3.7 % (1.7-9.3); NEUTROPHILS # (AUTO) 17.8 K/uL (1.8-7.7); NEUTROPHILS % (AUTO) 92.9 % (40.0-70.0); PLATELET COUNT (AUTO) 570 K/uL (130-430); RED BLOOD CELL COUNT(AUTO) 2.83 MIL/uL (4.2-6.2); RED CELL DISTRIBUTION WIDTH 15.9 % (9.0-15.0); WHITE BLOOD COUNT (AUTO) 19.2 K/uL (4.8-10.8)
[2022-11-04 05:44] LABS: ANION GAP 17 (5-15); CALCIUM 7.6 mg/dL (8.4-11.0); CHLORIDE 97 mmol/L (98-107); CREATININE 6.62 mg/dL (0.55-1.30); GLUCOSE 129 mg/dL (70-99); PHOSPHORUS 6.3 mg/dL (2.7-4.5)
[2022-11-04 05:59] LABS: UREA NITROGEN, BLOOD 124 mg/dL (8-21)
[2022-11-04] MEDS: PIPERACILLIN/TAZOBACTAM 2.25 GM/ DEX-IS 50 ML PREMIX IV SCH ×3 (06:15→22:41)
[2022-11-04] MEDS: BUDESONIDE 0.5 MG/2 ML AMPUL.NEB INH SCH ×2 (07:21→23:27)
[2022-11-04] MEDS: LACTULOSE 20 GM/30 ML UDC PO SCH ×2 (09:00→20:50)
[2022-11-04] MEDS: METHYLPREDNISOLONE SOD SUCC 40 MG/ML VIAL IVP SCH ×2 (09:20→22:41)
[2022-11-04] MEDS: PANTOPRAZOLE SODIUM 40 MG/VIAL (PROTONIX) IVP SCH (09:21)
[2022-11-04] MEDS: ACETAMINOPHEN 500 MG TABLET PO PRN ×3 (09:31→22:57)
[2022-11-04] MEDS: cloNIDine HCL 0.2 MG TABLET PO PRN ×2 (10:30→20:50)
[2022-11-04] MEDS: IPRATROPIUM/ALBUTEROL SULFATE 3 ML AMPUL.NEB (DUONEB) INH PRN (10:35)
[2022-11-04] MEDS: HEPARIN SODIUM,PORCINE 5,000 UNITS/ML VIAL MC PRN (11:58)
[2022-11-04] MEDS: EPOETIN ALFA-EPBX 4,000 UNITS/ML VIAL SUBCUT SCH (16:49)
[2022-11-04] MEDS: [UNRECOGNIZED DRUG - OTHER] IV SCH ×6 (22:45)
[2022-11-04] MEDS: SODIUM CHLORIDE IV SCH ×6 (22:45)
[2022-11-04] MEDS: TRACE ELEMENTS IV SCH ×6 (22:45)
[2022-11-04] MEDS: MVI IV SCH ×6 (22:45)
[2022-11-04] MEDS: TPN PERIPHERAL IV SCH ×6 (22:45)
[2022-11-05] VITALS (18 sets, daily range): BP systolic 138–168; PULSE 67–94; RESP 16–20; TEMP 96.4–97.6; O2SAT 97–100
[2022-11-05] MEDS ORDERED: HYDROcodone/ACETAMIN 5-325 MG TAB (NORCO/ VICODIN) PO ONE (05:00)
[2022-11-05] MEDS: cloNIDine HCL 0.2 MG TABLET PO PRN ×3 (05:33→21:12)
[2022-11-05] MEDS: IPRATROPIUM BROM 0.5 MG/2.5 ML VIAL.NEB (ATROVENT) INH SCH ×4 (05:37→18:50)
[2022-11-05] MEDS: ALBUTEROL SULFATE 0.083% 2.5 MG/3 ML VIAL.NEB INH SCH ×4 (05:37→18:49)
[2022-11-05] MEDS: IPRATROPIUM/ALBUTEROL SULFATE 3 ML AMPUL.NEB (DUONEB) INH PRN ×2 (05:38→11:08)
[2022-11-05] MEDS: PIPERACILLIN/TAZOBACTAM 2.25 GM/ DEX-IS 50 ML PREMIX IV SCH ×3 (06:30→21:12)
[2022-11-05 07:25] LABS: ALANINE AMINOTRANSFERASE 44 U/L (12-78); ALBUMIN 1.7 g/dL (3.4-4.8); ANION GAP 10 (5-15); ASPARTATE AMINOTRANSFERASE 31 U/L (10-37); CALCIUM 7.6 mg/dL (8.4-11.0); CHLORIDE 100 mmol/L (98-107); CREATININE 5.27 mg/dL (0.55-1.30); GLUCOSE 122 mg/dL (70-99); PHOSPHORUS 6.9 mg/dL (2.7-4.5); TOTAL BILIRUBIN 0.6 mg/dL (0.0-1.0); UREA NITROGEN, BLOOD 90 mg/dL (8-21)
[2022-11-05] MEDS: BUDESONIDE 0.5 MG/2 ML AMPUL.NEB INH SCH ×2 (07:27→18:50)
[2022-11-05] MEDS: LACTULOSE 20 GM/30 ML UDC PO SCH ×2 (09:00→21:12)
[2022-11-05] MEDS: PANTOPRAZOLE SODIUM 40 MG/VIAL (PROTONIX) IVP SCH (10:28)
[2022-11-05] MEDS: METHYLPREDNISOLONE SOD SUCC 40 MG/ML VIAL IVP SCH ×2 (10:28→21:11)
[2022-11-05] MEDS ORDERED: ALPRAZolam 0.25 MG TABLET PO ONE (11:15)
[2022-11-05] MEDS: ALPRAZolam 0.25 MG TABLET PO PRN (12:14)
[2022-11-05] MEDS ORDERED: ALPRAZolam 0.25 MG TABLET PO SCH (21:00)
[2022-11-05] MEDS: SODIUM CHLORIDE IV SCH ×7 (21:15)
[2022-11-05] MEDS: MVI IV SCH ×7 (21:15)
[2022-11-05] MEDS: TRACE ELEMENTS IV SCH ×7 (21:15)
[2022-11-05] MEDS: TPN PERIPHERAL IV SCH ×7 (21:15)
[2022-11-05] MEDS: [UNRECOGNIZED DRUG - OTHER] IV SCH ×7 (21:15)
[2022-11-06] VITALS (10 sets, daily range): BP systolic 136–164; PULSE 71–88; RESP 17–21; TEMP 96.7–98.1; O2SAT 97–100
[2022-11-06] MEDS: ALBUTEROL SULFATE 0.083% 2.5 MG/3 ML VIAL.NEB INH SCH ×4 (01:27→19:49)
[2022-11-06] MEDS: IPRATROPIUM BROM 0.5 MG/2.5 ML VIAL.NEB (ATROVENT) INH SCH ×4 (01:28→19:50)
[2022-11-06 04:42] LABS: BASOPHILS # (AUTO) 0.1 K/uL (0.0-0.2); BASOPHILS % (AUTO) 0.4 % (0.0-2.0); EOSINOPHILS % (AUTO) 0.1 % (0.0-4.0); LYMPHOCYTES # (AUTO) 0.6 K/uL (1.0-5.5); LYMPHOCYTES % (AUTO) 3.5 % (20.5-51.5); MEAN CORPUSCULAR HEMOGLOBIN 29 pg (27-31); MEAN CORPUSCULAR HGB CONC 33 % (32-36); MEAN CORPUSCULAR VOLUME 87 fL (79.0-98.0); MONOCYTES # (AUTO) 0.6 K/uL (0.0-1.0); MONOCYTES % (AUTO) 3.5 % (1.7-9.3); NEUTROPHILS # (AUTO) 14.8 K/uL (1.8-7.7); NEUTROPHILS % (AUTO) 92.5 % (40.0-70.0); PLATELET COUNT (AUTO) 308 K/uL (130-430); RED BLOOD CELL COUNT(AUTO) 2.44 MIL/uL (4.2-6.2); RED CELL DISTRIBUTION WIDTH 16.4 % (9.0-15.0)
[2022-11-06 04:58] LABS: ALANINE AMINOTRANSFERASE 40 U/L (12-78); ALBUMIN 1.7 g/dL (3.4-4.8); ANION GAP 12 (5-15); ASPARTATE AMINOTRANSFERASE 27 U/L (10-37); C-REACTIVE PROTEIN QUANT 3.2 mg/dL (0-0.5); CALCIUM 7.3 mg/dL (8.4-11.0); CHLORIDE 98 mmol/L (98-107); CREATININE 6.14 mg/dL (0.55-1.30); GLUCOSE 148 mg/dL (70-99); PHOSPHORUS 6.6 mg/dL (2.7-4.5); TOTAL BILIRUBIN 0.5 mg/dL (0.0-1.0)
[2022-11-06 05:04] LABS: HEMATOCRIT 21.3 % (36-48)
[2022-11-06 05:07] LABS: UREA NITROGEN, BLOOD 122 mg/dL (8-21)
[2022-11-06 05:12] LABS: ERYTHROCYTE SEDIMENTATION RATE 34 MM/HR (0-20)
[2022-11-06] MEDS: PIPERACILLIN/TAZOBACTAM 2.25 GM/ DEX-IS 50 ML PREMIX IV SCH ×3 (05:30→21:17)
[2022-11-06] MEDS: cloNIDine HCL 0.1 MG TABLET PO PRN ×2 (05:47→13:44)
[2022-11-06] MEDS: BUDESONIDE 0.5 MG/2 ML AMPUL.NEB INH SCH ×2 (07:41→19:50)
[2022-11-06] MEDS: LACTULOSE 20 GM/30 ML UDC PO SCH ×2 (09:00→20:58)
[2022-11-06] MEDS: PANTOPRAZOLE SODIUM 40 MG/VIAL (PROTONIX) IVP SCH (10:39)
[2022-11-06] MEDS: METHYLPREDNISOLONE SOD SUCC 40 MG/ML VIAL IVP SCH ×2 (10:39→21:21)
[2022-11-06] MEDS: IPRATROPIUM/ALBUTEROL SULFATE 3 ML AMPUL.NEB (DUONEB) INH PRN (10:41)
[2022-11-06] MEDS: ALPRAZolam 0.25 MG TABLET PO PRN (14:22)
[2022-11-06] MEDS: EPOETIN ALFA-EPBX 4,000 UNITS/ML VIAL SUBCUT SCH (16:46)
[2022-11-06] MEDS: [UNRECOGNIZED DRUG - OTHER] IV SCH ×7 (21:22)
[2022-11-06] MEDS: TRACE ELEMENTS IV SCH ×7 (21:22)
[2022-11-06] MEDS: TPN PERIPHERAL IV SCH ×7 (21:22)
[2022-11-06] MEDS: MVI IV SCH ×7 (21:22)
[2022-11-06] MEDS: SODIUM CHLORIDE IV SCH ×7 (21:22)
[2022-11-07] VITALS (16 sets, daily range): BP systolic 150–183; PULSE 68–93; RESP 17–20; TEMP 97–98.1; O2SAT 96–100
[2022-11-07] MEDS: cloNIDine HCL 0.1 MG TABLET PO PRN ×2 (00:31→21:47)
[2022-11-07] MEDS: ACETAMINOPHEN 500 MG TABLET PO PRN (00:32)
[2022-11-07] MEDS: ALBUTEROL SULFATE 0.083% 2.5 MG/3 ML VIAL.NEB INH SCH ×4 (01:01→18:10)
[2022-11-07] MEDS: IPRATROPIUM BROM 0.5 MG/2.5 ML VIAL.NEB (ATROVENT) INH SCH ×4 (01:02→18:10)
[2022-11-07 05:24] LABS: BASOPHILS # (AUTO) 0.1 K/uL (0.0-0.2); BASOPHILS % (AUTO) 0.5 % (0.0-2.0); EOSINOPHILS # (AUTO) 0.1 K/uL (0.0-0.4); EOSINOPHILS % (AUTO) 0.5 % (0.0-4.0); HEMOGLOBIN 7.1 g/dL (12.0-16.0); LYMPHOCYTES % (AUTO) 5.6 % (20.5-51.5); MEAN CORPUSCULAR HEMOGLOBIN 29 pg (27-31); MEAN CORPUSCULAR HGB CONC 32 % (32-36); MEAN CORPUSCULAR VOLUME 88 fL (79.0-98.0); MONOCYTES # (AUTO) 0.8 K/uL (0.0-1.0); MONOCYTES % (AUTO) 4.6 % (1.7-9.3); NEUTROPHILS # (AUTO) 15.1 K/uL (1.8-7.7); NEUTROPHILS % (AUTO) 88.8 % (40.0-70.0); PLATELET COUNT (AUTO) 263 K/uL (130-430); RED BLOOD CELL COUNT(AUTO) 2.51 MIL/uL (4.2-6.2); RED CELL DISTRIBUTION WIDTH 17.2 % (9.0-15.0)
[2022-11-07 05:38] LABS: ERYTHROCYTE SEDIMENTATION RATE 35 MM/HR (0-20)
[2022-11-07] MEDS: PIPERACILLIN/TAZOBACTAM 2.25 GM/ DEX-IS 50 ML PREMIX IV SCH ×3 (05:53→22:36)
[2022-11-07] MEDS: BUDESONIDE 0.5 MG/2 ML AMPUL.NEB INH SCH ×2 (07:19→18:11)
[2022-11-07] MEDS ORDERED: DIPHENHYDRAMINE INJ 50 MG/ML VIAL IM ONE (08:00)
[2022-11-07 08:23] LABS: ALANINE AMINOTRANSFERASE 37 U/L (12-78); ALBUMIN 1.8 g/dL (3.4-4.8); ANION GAP 10 (5-15); ASPARTATE AMINOTRANSFERASE 22 U/L (10-37); C-REACTIVE PROTEIN QUANT 2.6 mg/dL (0-0.5); CALCIUM 7.7 mg/dL (8.4-11.0); CHLORIDE 99 mmol/L (98-107); CREATININE 4.44 mg/dL (0.55-1.30); GLUCOSE 122 mg/dL (70-99); PHOSPHORUS 5.4 mg/dL (2.7-4.5); TOTAL BILIRUBIN 0.5 mg/dL (0.0-1.0); UREA NITROGEN, BLOOD 77 mg/dL (8-21)
[2022-11-07] MEDS: LACTULOSE 20 GM/30 ML UDC PO SCH ×2 (08:47→20:34)
[2022-11-07] MEDS: PANTOPRAZOLE SODIUM 40 MG/VIAL (PROTONIX) IVP SCH (09:24)
[2022-11-07] MEDS: METHYLPREDNISOLONE SOD SUCC 40 MG/ML VIAL IVP SCH ×2 (09:24→22:11)
[2022-11-07] MEDS: IPRATROPIUM/ALBUTEROL SULFATE 3 ML AMPUL.NEB (DUONEB) INH PRN ×2 (11:03→21:53)
[2022-11-07] MEDS ORDERED: METOPROLOL SUCCINATE 50 MG TAB.SR.24H (TOPROL XL) PO ONE (13:00)
[2022-11-07] MEDS ORDERED: lisinopriL 20 MG TABLET PO ONE (13:00)
[2022-11-07] MEDS: TPN PERIPHERAL IV SCH ×7 (20:13)
[2022-11-07] MEDS: TRACE ELEMENTS IV SCH ×7 (20:13)
[2022-11-07] MEDS: [UNRECOGNIZED DRUG - OTHER] IV SCH ×7 (20:13)
[2022-11-07] MEDS: MVI IV SCH ×7 (20:13)
[2022-11-07] MEDS: SODIUM CHLORIDE IV SCH ×7 (20:13)
[2022-11-07] MEDS: DIPHENHYDRAMINE INJ 50 MG/ML VIAL IVP SCH (21:27)
[2022-11-07] MEDS: ALPRAZolam 0.25 MG TABLET PO PRN (21:29)
[2022-11-07] MEDS: HEPARIN SODIUM,PORCINE 5,000 UNITS/ML VIAL MC PRN (21:41)
[2022-11-08] VITALS (18 sets, daily range): BP systolic 146–187; PULSE 63–83; RESP 15–16; TEMP 97.3–98.1; O2SAT 98–99
[2022-11-08] MEDS: ALBUTEROL SULFATE 0.083% 2.5 MG/3 ML VIAL.NEB INH SCH ×4 (01:48→21:28)
[2022-11-08] MEDS: IPRATROPIUM BROM 0.5 MG/2.5 ML VIAL.NEB (ATROVENT) INH SCH ×4 (01:49→21:28)
[2022-11-08] MEDS: PIPERACILLIN/TAZOBACTAM 2.25 GM/ DEX-IS 50 ML PREMIX IV SCH ×3 (05:33→21:40)
[2022-11-08 06:18] LABS: EOSINOPHILS % (AUTO) 0.1 % (0.0-4.0); HEMATOCRIT 23.1 % (36-48); HEMOGLOBIN 7.5 g/dL (12.0-16.0); LYMPHOCYTES # (AUTO) 0.5 K/uL (1.0-5.5); LYMPHOCYTES % (AUTO) 2.8 % (20.5-51.5); MEAN CORPUSCULAR HEMOGLOBIN 29 pg (27-31); MEAN CORPUSCULAR HGB CONC 32 % (32-36); MEAN CORPUSCULAR VOLUME 89 fL (79.0-98.0); MONOCYTES # (AUTO) 0.4 K/uL (0.0-1.0); MONOCYTES % (AUTO) 2.1 % (1.7-9.3); NEUTROPHILS # (AUTO) 18.3 K/uL (1.8-7.7); PLATELET COUNT (AUTO) 217 K/uL (130-430); RED BLOOD CELL COUNT(AUTO) 2.61 MIL/uL (4.2-6.2); RED CELL DISTRIBUTION WIDTH 17.8 % (9.0-15.0); WHITE BLOOD COUNT (AUTO) 19.2 K/uL (4.8-10.8)
[2022-11-08 06:23] LABS: ALANINE AMINOTRANSFERASE 38 U/L (12-78); ALBUMIN 1.8 g/dL (3.4-4.8); ANION GAP 10 (5-15); ASPARTATE AMINOTRANSFERASE 26 U/L (10-37); C-REACTIVE PROTEIN QUANT 2.5 mg/dL (0-0.5); CALCIUM 7.6 mg/dL (8.4-11.0); CHLORIDE 99 mmol/L (98-107); CREATININE 5.14 mg/dL (0.55-1.30); GLUCOSE 134 mg/dL (70-99); PHOSPHORUS 6.6 mg/dL (2.7-4.5); TOTAL BILIRUBIN 0.4 mg/dL (0.0-1.0); UREA NITROGEN, BLOOD 95 mg/dL (8-21)
[2022-11-08 07:08] LABS: ERYTHROCYTE SEDIMENTATION RATE 33 MM/HR (0-20)
[2022-11-08] MEDS: BUDESONIDE 0.5 MG/2 ML AMPUL.NEB INH SCH ×2 (07:53→21:29)
[2022-11-08] MEDS: lisinopriL 20 MG TABLET PO SCH (09:28)
[2022-11-08] MEDS: PANTOPRAZOLE SODIUM 40 MG/VIAL (PROTONIX) IVP SCH (09:29)
[2022-11-08] MEDS: LACTULOSE 20 GM/30 ML UDC PO SCH ×2 (09:29→20:20)
[2022-11-08] MEDS: METOPROLOL SUCCINATE 50 MG TAB.SR.24H (TOPROL XL) PO SCH (09:29)
[2022-11-08] MEDS: METHYLPREDNISOLONE SOD SUCC 40 MG/ML VIAL IVP SCH ×2 (09:31→20:20)
[2022-11-08] MEDS: ACETAMINOPHEN 500 MG TABLET PO PRN ×3 (09:39→20:21)
[2022-11-08] MEDS: cloNIDine HCL 0.1 MG TABLET PO PRN ×2 (11:13→20:22)
[2022-11-08 11:35] LABS: BASOPHILS % (AUTO) 0.1 % (0.0-2.0); EOSINOPHILS % (AUTO) 0.2 % (0.0-4.0); HEMATOCRIT 24.7 % (36-48); HEMOGLOBIN 7.9 g/dL (12.0-16.0); LYMPHOCYTES # (AUTO) 0.6 K/uL (1.0-5.5); LYMPHOCYTES % (AUTO) 3.2 % (20.5-51.5); MEAN CORPUSCULAR HEMOGLOBIN 29 pg (27-31); MEAN CORPUSCULAR HGB CONC 32 % (32-36); MEAN CORPUSCULAR VOLUME 89 fL (79.0-98.0); MONOCYTES # (AUTO) 0.7 K/uL (0.0-1.0); MONOCYTES % (AUTO) 3.7 % (1.7-9.3); NEUTROPHILS # (AUTO) 17.2 K/uL (1.8-7.7); NEUTROPHILS % (AUTO) 92.8 % (40.0-70.0); PLATELET COUNT (AUTO) 225 K/uL (130-430); RED BLOOD CELL COUNT(AUTO) 2.77 MIL/uL (4.2-6.2); RED CELL DISTRIBUTION WIDTH 17.3 % (9.0-15.0); WHITE BLOOD COUNT (AUTO) 18.6 K/uL (4.8-10.8)
[2022-11-08] MEDS: INSULIN REGULAR, HUMAN 100 UNITS/ML, 3 ML VIAL (humuLIN R) SUBCUT PRN (12:00)
[2022-11-08] MEDS ORDERED: HEPARIN SODIUM,PORCINE 5,000 UNITS/ML VIAL MC ONE (16:30)
[2022-11-08] MEDS: ALPRAZolam 0.25 MG TABLET PO PRN (19:07)
[2022-11-08] MEDS: [UNRECOGNIZED DRUG - OTHER] IV SCH ×7 (20:36)
[2022-11-08] MEDS: MVI IV SCH ×7 (20:36)
[2022-11-08] MEDS: TPN PERIPHERAL IV SCH ×7 (20:36)
[2022-11-08] MEDS: SODIUM CHLORIDE IV SCH ×7 (20:36)
[2022-11-08] MEDS: TRACE ELEMENTS IV SCH ×7 (20:36)
[2022-11-09] VITALS (16 sets, daily range): BP systolic 131–180; PULSE 59–73; RESP 15–20; TEMP 97.1–98; O2SAT 93–99
[2022-11-09] MEDS: IPRATROPIUM BROM 0.5 MG/2.5 ML VIAL.NEB (ATROVENT) INH SCH ×3 (01:38→19:01)
[2022-11-09] MEDS: ALBUTEROL SULFATE 0.083% 2.5 MG/3 ML VIAL.NEB INH SCH ×3 (01:38→19:01)
[2022-11-09] MEDS: PIPERACILLIN/TAZOBACTAM 2.25 GM/ DEX-IS 50 ML PREMIX IV SCH ×2 (05:58→14:07)
[2022-11-09] MEDS: ACETAMINOPHEN 500 MG TABLET PO PRN ×2 (06:02→21:05)
[2022-11-09] MEDS: cloNIDine HCL 0.1 MG TABLET PO PRN ×3 (06:18→21:08)
[2022-11-09 06:22] LABS: ALANINE AMINOTRANSFERASE 48 U/L (12-78); ALBUMIN 1.9 g/dL (3.4-4.8); ANION GAP 8 (5-15); ASPARTATE AMINOTRANSFERASE 27 U/L (10-37); CALCIUM 7.7 mg/dL (8.4-11.0); CHLORIDE 100 mmol/L (98-107); CREATININE 3.83 mg/dL (0.55-1.30); GLUCOSE 110 mg/dL (70-99); PHOSPHORUS 4.8 mg/dL (2.7-4.5); TOTAL BILIRUBIN 0.4 mg/dL (0.0-1.0); UREA NITROGEN, BLOOD 67 mg/dL (8-21)
[2022-11-09] MEDS: BUDESONIDE 0.5 MG/2 ML AMPUL.NEB INH SCH ×2 (07:02→19:18)
[2022-11-09 07:03] LABS: PROTHROMBIN TIME 10.5 SECS (9.5-12.5)
[2022-11-09] MEDS: LACTULOSE 20 GM/30 ML UDC PO SCH ×2 (08:16→21:05)
[2022-11-09] MEDS: lisinopriL 20 MG TABLET PO SCH (08:17)
[2022-11-09] MEDS: METOPROLOL SUCCINATE 50 MG TAB.SR.24H (TOPROL XL) PO SCH (08:17)
[2022-11-09] MEDS: PANTOPRAZOLE SODIUM 40 MG/VIAL (PROTONIX) IVP SCH (08:25)
[2022-11-09] MEDS: METHYLPREDNISOLONE SOD SUCC 40 MG/ML VIAL IVP SCH ×2 (08:25→21:05)
[2022-11-09] MEDS ORDERED: D5W 250 ML IV.SOLN IV ONE (10:17)
[2022-11-09] MEDS ORDERED: BUPIVACAINE /EPINEPHRINE/PF 0.5% 30 ML VIAL INJ ONE (10:17)
[2022-11-09] MEDS ORDERED: MORPHINE 4 MG INJ. 4 MG/ML VIAL IVP PRN (11:15)
[2022-11-09] MEDS ORDERED: METOCLOPRAMIDE HCL 10 MG/2 ML VIAL IVP PRN (11:15)
[2022-11-09] MEDS: ALPRAZolam 0.25 MG TABLET PO PRN (12:31)
[2022-11-09] MEDS: MICAFUNGIN SODIUM 100 MG in NS 100 ML IV SCH (14:08)
[2022-11-09] MEDS: EPOETIN ALFA-EPBX 4,000 UNITS/ML VIAL SUBCUT SCH (16:17)
[2022-11-09] MEDS: MVI IV SCH ×7 (21:11)
[2022-11-09] MEDS: TRACE ELEMENTS IV SCH ×7 (21:11)
[2022-11-09] MEDS: SODIUM CHLORIDE IV SCH ×7 (21:11)
[2022-11-09] MEDS: TPN PERIPHERAL IV SCH ×7 (21:11)
[2022-11-09] MEDS: [UNRECOGNIZED DRUG - OTHER] IV SCH ×7 (21:11)
[2022-11-09] MEDS: IPRATROPIUM/ALBUTEROL SULFATE 3 ML AMPUL.NEB (DUONEB) INH PRN (23:53)
[2022-11-10] VITALS (18 sets, daily range): BP systolic 149–184; PULSE 15–83; RESP 18–22; TEMP 96.7–97.7; O2SAT 94–100
[2022-11-10] MEDS: ALBUTEROL SULFATE 0.083% 2.5 MG/3 ML VIAL.NEB INH SCH ×4 (01:22→19:43)
[2022-11-10] MEDS: IPRATROPIUM BROM 0.5 MG/2.5 ML VIAL.NEB (ATROVENT) INH SCH ×4 (01:22→19:43)
[2022-11-10] MEDS: ACETAMINOPHEN 500 MG TABLET PO PRN ×2 (05:39→13:59)
[2022-11-10] MEDS: cloNIDine HCL 0.1 MG TABLET PO PRN ×2 (05:41→18:18)
[2022-11-10 05:55] LABS: ALANINE AMINOTRANSFERASE 44 U/L (12-78); ANION GAP 9 (5-15); ASPARTATE AMINOTRANSFERASE 24 U/L (10-37); CALCIUM 7.8 mg/dL (8.4-11.0); CHLORIDE 101 mmol/L (98-107); CREATININE 3.37 mg/dL (0.55-1.30); GLUCOSE 122 mg/dL (70-99); PHOSPHORUS 4.4 mg/dL (2.7-4.5); TOTAL BILIRUBIN 0.4 mg/dL (0.0-1.0); UREA NITROGEN, BLOOD 57 mg/dL (8-21)
[2022-11-10 06:04] LABS: BASOPHILS % (AUTO) 0.1 % (0.0-2.0); EOSINOPHILS % (AUTO) 0.1 % (0.0-4.0); HEMATOCRIT 23.3 % (36-48); HEMOGLOBIN 7.5 g/dL (12.0-16.0); LYMPHOCYTES # (AUTO) 0.6 K/uL (1.0-5.5); LYMPHOCYTES % (AUTO) 4.3 % (20.5-51.5); MEAN CORPUSCULAR HEMOGLOBIN 29 pg (27-31); MEAN CORPUSCULAR HGB CONC 32 % (32-36); MEAN CORPUSCULAR VOLUME 90 fL (79.0-98.0); MONOCYTES # (AUTO) 0.5 K/uL (0.0-1.0); NEUTROPHILS % (AUTO) 91.5 % (40.0-70.0); PLATELET COUNT (AUTO) 163 K/uL (130-430); RED BLOOD CELL COUNT(AUTO) 2.61 MIL/uL (4.2-6.2); RED CELL DISTRIBUTION WIDTH 18.6 % (9.0-15.0); WHITE BLOOD COUNT (AUTO) 13.1 K/uL (4.8-10.8)
[2022-11-10] MEDS: BUDESONIDE 0.5 MG/2 ML AMPUL.NEB INH SCH ×2 (07:09→19:57)
[2022-11-10] MEDS: LACTULOSE 20 GM/30 ML UDC PO SCH (08:30)
[2022-11-10] MEDS: lisinopriL 20 MG TABLET PO SCH (08:35)
[2022-11-10] MEDS: PANTOPRAZOLE SODIUM 40 MG/VIAL (PROTONIX) IVP SCH (08:35)
[2022-11-10] MEDS: METOPROLOL SUCCINATE 50 MG TAB.SR.24H (TOPROL XL) PO SCH (08:35)
[2022-11-10] MEDS: METHYLPREDNISOLONE SOD SUCC 40 MG/ML VIAL IVP SCH (08:35)
[2022-11-10] MEDS: PIPERACILLIN/TAZO 2.25G/DEX-IS 50 ML IV SCH ×2 (13:58→18:11)
[2022-11-10] MEDS: MICAFUNGIN SODIUM 100 MG in NS 100 ML IV SCH (14:42)
[2022-11-10] MEDS: ALPRAZolam 0.25 MG TABLET PO PRN (15:30)
[2022-11-10] MEDS: HEPARIN SODIUM,PORCINE 5,000 UNITS/ML VIAL MC PRN (15:32)
[2022-11-10] MEDS: IPRATROPIUM/ALBUTEROL SULFATE 3 ML AMPUL.NEB (DUONEB) INH PRN ×2 (15:43→23:20)
[2022-11-10] MEDS ORDERED: HEPARIN SODIUM,PORCINE 5,000 UNITS/ML VIAL MC ONE (15:45)
[2022-11-10] MEDS ORDERED: traMADol HCL HCL 50 MG TABLET (ULTRAM) PO ONE (17:45)
[2022-11-10] MEDS ORDERED: hydrALAZINE HCL 25 MG TABLET PO ONE (19:30)
[2022-11-10] MEDS ORDERED: [UNRECOGNIZED DRUG - OTHER] IV SCH ×7 (21:00)
[2022-11-10] MEDS ORDERED: MVI IV SCH ×7 (21:00)
[2022-11-10] MEDS ORDERED: TPN PERIPHERAL IV SCH ×7 (21:00)
[2022-11-10] MEDS ORDERED: SODIUM CHLORIDE IV SCH ×7 (21:00)
[2022-11-10] MEDS ORDERED: MAGNESIUM SULFATE IV SCH ×7 (21:00)
== END 2022-11-10 23:52 | DRG 853 ==
LOC: SED 19:28 → SMU 22:31 → STU 10-21 22:28 → SIC 10-22 21:40 → STU 10-28 19:31 → SMU 11-01 06:53 → STU 11-01 18:31 → SMU 11-03 11:07
PROVIDERS: ADMIT Specialist; ATTEND Specialist
PROC: 5A1D70Z Performance of Urinary Filtration, Intermittent, Less than 6 Hours Per Day (ICD-10-PCS; 2022-10-21)
PROC: 30233N1 Transfusion of Nonautologous Red Blood Cells into Peripheral Vein, Percutaneous Approach (ICD-10-PCS; 2022-10-22)
PROC: 02HV33Z Insertion of Infusion Device into Superior Vena Cava, Percutaneous Approach (ICD-10-PCS; 2022-10-22)
PROC: B548ZZA Ultrasonography of Superior Vena Cava, Guidance (ICD-10-PCS; 2022-10-22)
PROC: 5A1D70Z Performance of Urinary Filtration, Intermittent, Less than 6 Hours Per Day (ICD-10-PCS; 2022-10-22)
PROC: 5A09357 Assistance with Respiratory Ventilation, Less than 24 Consecutive Hours, Continuous Positive Airway Pressure (ICD-10-PCS; 2022-10-22)
PROC: 5A1945Z Respiratory Ventilation, 24-96 Consecutive Hours (ICD-10-PCS; 2022-10-23)
PROC: 0BH17EZ Insertion of Endotracheal Airway into Trachea, Via Natural or Artificial Opening (ICD-10-PCS; 2022-10-23)
PROC: 5A09357 Assistance with Respiratory Ventilation, Less than 24 Consecutive Hours, Continuous Positive Airway Pressure (ICD-10-PCS; 2022-10-23)
PROC: 5A1D70Z Performance of Urinary Filtration, Intermittent, Less than 6 Hours Per Day (ICD-10-PCS; 2022-10-24)
PROC: 0FT40ZZ Resection of Gallbladder, Open Approach (ICD-10-PCS; principal; 2022-10-26)
PROC: BF121ZZ Fluoroscopy of Gallbladder using Low Osmolar Contrast (ICD-10-PCS; 2022-10-26)
PROC: 5A1D70Z Performance of Urinary Filtration, Intermittent, Less than 6 Hours Per Day (ICD-10-PCS; 2022-10-26)
PROC: 05HY33Z Insertion of Infusion Device into Upper Vein, Percutaneous Approach (ICD-10-PCS; 2022-10-27)
PROC: 5A1D70Z Performance of Urinary Filtration, Intermittent, Less than 6 Hours Per Day (ICD-10-PCS; 2022-10-28)
PROC: 5A1D70Z Performance of Urinary Filtration, Intermittent, Less than 6 Hours Per Day (ICD-10-PCS; 2022-10-30)
PROC: 5A1D70Z Performance of Urinary Filtration, Intermittent, Less than 6 Hours Per Day (ICD-10-PCS; 2022-11-01)
PROC: 5A09357 Assistance with Respiratory Ventilation, Less than 24 Consecutive Hours, Continuous Positive Airway Pressure (ICD-10-PCS; 2022-11-01)
PROC: 5A09357 Assistance with Respiratory Ventilation, Less than 24 Consecutive Hours, Continuous Positive Airway Pressure (ICD-10-PCS; 2022-11-02)
PROC: 5A09357 Assistance with Respiratory Ventilation, Less than 24 Consecutive Hours, Continuous Positive Airway Pressure (ICD-10-PCS; 2022-11-03)
PROC: 5A1D70Z Performance of Urinary Filtration, Intermittent, Less than 6 Hours Per Day (ICD-10-PCS; 2022-11-04)
PROC: 5A1D70Z Performance of Urinary Filtration, Intermittent, Less than 6 Hours Per Day (ICD-10-PCS; 2022-11-06)
PROC: 5A1D70Z Performance of Urinary Filtration, Intermittent, Less than 6 Hours Per Day (ICD-10-PCS; 2022-11-07)
PROC: 5A09357 Assistance with Respiratory Ventilation, Less than 24 Consecutive Hours, Continuous Positive Airway Pressure (ICD-10-PCS; 2022-11-07)
PROC: 5A1D70Z Performance of Urinary Filtration, Intermittent, Less than 6 Hours Per Day (ICD-10-PCS; 2022-11-08)
PROC: 5A09357 Assistance with Respiratory Ventilation, Less than 24 Consecutive Hours, Continuous Positive Airway Pressure (ICD-10-PCS; 2022-11-08)
PROC: 0JH63XZ Insertion of Tunneled Vascular Access Device into Chest Subcutaneous Tissue and Fascia, Percutaneous Approach (ICD-10-PCS; 2022-11-09)
PROC: 02HV33Z Insertion of Infusion Device into Superior Vena Cava, Percutaneous Approach (ICD-10-PCS; 2022-11-09)
PROC: B5181ZA Fluoroscopy of Superior Vena Cava using Low Osmolar Contrast, Guidance (ICD-10-PCS; 2022-11-09)
PROC: 5A1D70Z Performance of Urinary Filtration, Intermittent, Less than 6 Hours Per Day (ICD-10-PCS; 2022-11-09)
PROC: 5A09357 Assistance with Respiratory Ventilation, Less than 24 Consecutive Hours, Continuous Positive Airway Pressure (ICD-10-PCS; 2022-11-09)
PROC: 5A1D70Z Performance of Urinary Filtration, Intermittent, Less than 6 Hours Per Day (ICD-10-PCS; 2022-11-10)
PROC: 5A09357 Assistance with Respiratory Ventilation, Less than 24 Consecutive Hours, Continuous Positive Airway Pressure (ICD-10-PCS; 2022-11-10)
DX: A41.9 Sepsis, unspecified organism (principal); E43 Unspecified severe protein-calorie malnutrition; K85.10 Biliary acute pancreatitis without necrosis or infection; N17.0 Acute kidney failure with tubular necrosis; J96.20 Acute and chronic respiratory failure, unspecified whether with hypoxia or hypercapnia; J44.1 Chronic obstructive pulmonary disease with (acute) exacerbation; R18.8 Other ascites; K80.12 Calculus of gallbladder with acute and chronic cholecystitis without obstruction; Z68.42 Body mass index [BMI] 45.0-49.9, adult; E87.1 Hypo-osmolality and hyponatremia; D75.839 Thrombocytosis, unspecified; D64.9 Anemia, unspecified; E83.39 Other disorders of phosphorus metabolism; E83.51 Hypocalcemia; E88.09 Other disorders of plasma-protein metabolism, not elsewhere classified; G47.30 Sleep apnea, unspecified; I27.20 Pulmonary hypertension, unspecified; J84.10 Pulmonary fibrosis, unspecified; K66.0 Peritoneal adhesions (postprocedural) (postinfection); E66.01 Morbid (severe) obesity due to excess calories; Z20.822 Contact with and (suspected) exposure to COVID-19; R74.01 Elevation of levels of liver transaminase levels; D63.1 Anemia in chronic kidney disease; R16.0 Hepatomegaly, not elsewhere classified; K82.A1 Gangrene of gallbladder in cholecystitis; N18.9 Chronic kidney disease, unspecified; R65.20 Severe sepsis without septic shock; Z79.01 Long term (current) use of anticoagulants; Z87.891 Personal history of nicotine dependence; Z90.49 Acquired absence of other specified parts of digestive tract; Z99.2 Dependence on renal dialysis; Z99.81 Dependence on supplemental oxygen; Z79.899 Other long term (current) drug therapy
CPT/HCPCS: 36415; 36600; 71045; 71270-TC; 74181; 76000; 76376; 76705; 76770; 78226; 80048; 80053; 80074; 80076; 81000; 82150; 82570; 82728; 82803; 82962; 83037; 83540; 83550; 83605; 83690; 83735; 83880; 84100; 84302; 84478; 84484; 85007; 85025; 85027; 85610-TC; 85651-TC; 85730-TC; 86140; 86480; 86886; 86900; 86901; 86920; 87040; 87070-TC; 87081; 87086; 87205-TC; 88300; 88304; 90935; 90937; 92610-GN; 93005; 94002; 94003; 94010; 94640; 94660; 94760; 96365; 96375; 96376; 97110-GP; 97112-GP; 97163-GP; 97530-GP; 99291; A9537; C1727; C1750; C1758; C9113; G0378; J0610; J1030; J1200; J1644; J1815; J1885; J1940; J2060; J2248; J2250; J2270; J2405; J2543; J2704; J2916; J3010; J3475; J3480; J3490; J7030; J7040; J7060; J7120; J7131; J7613; J7626; P9021; Q0167; Q5106; Q9966; Q9967